=== PATIENT | female | born 1995 | race Caucasian/White ===

== ENCOUNTER 2017-07-22 16:32 | Outpatient (CLI) | payer OTHER ==
[2017-07-22 17:10] LABS: BASOPHILS # (AUTO) 0.1 10^3/uL (0.0-0.1); BASOPHILS % (AUTO) 0.7 %; EOSINOPHILS # (AUTO) 0.1 10^3/uL (0.0-0.7); EOSINOPHILS % (AUTO) 1.5 %; HGB - HEMOGLOBIN 13.2 g/dL (12.0-16.0); LYMPHOCYTES # (AUTO) 1.7 10^3/uL (1.5-3.5); MEAN CORPUSCULAR HEMOGLOBIN 29.6 pg (27.0-31.0); MEAN CORPUSCULAR HGB CONC 34.9 g/dL (32.0-36.0); MEAN PLATELET VOLUME 7.5 fL (7.9-10.8); MONOCYTES # (AUTO) 0.8 10^3/uL (0.0-1.0); MONOCYTES % (AUTO) 8.5 %; NEUTROPHILS # (AUTO) 6.9 10^3/uL (1.5-6.6); NEUTROPHILS % (AUTO) 71.3 %; RED BLOOD COUNT 4.47 10^6/uL (4.20-5.40); RED CELL DISTRIBUTION WIDTH 12.7 % (12.0-15.0); UNCORRECTED WHITE BLOOD COUNT 9.6 x10^3/uL; WHITE BLOOD COUNT 9.6 x10^3/uL (4.8-10.8)
[2017-07-22 17:31] LABS: BILIRUBIN,URINE NEGATIVE (NEGATIVE)
[2017-07-22 17:41] LABS: WBC,URINE >25 /HPF (0-5)
[2017-07-23 12:07] LABS: TEST RESULT REPORT
== END 2017-07-22 16:33 | disposition home or self-care (01) ==
LOC: LAB 16:32
PROVIDERS: ATTEND Obstetrics & Gynecology
DX: Z36.9 Encounter for antenatal screening, unspecified (principal)
CPT/HCPCS: 36415; 81001; 81599; 85025; 86762; 86803; 86850; 86900; 86901; 87340; 87389

== ENCOUNTER 2017-10-04 12:18 | Outpatient (CLI) | payer OTHER ==
--- NOTE | 2017-10-08 10:37 | Ultrasound Report ---
OB ULTRASOUND: 10/04/2017 CLINICAL INDICATION: anatomy. TECHNIQUE: Real-time scanning was performed with care support representative static images obtained. 3 LAST MENSTRUAL PERIOD 05/12/2017 Clinical Age 20 weeks 5 days US Age 21 weeks 4 days EFW Hadlock 437 grams EFW% Hadlock -- Heart Rate 143 bpm EDC 02/16/2018 US EDC 02/10/2018 BPD Hadlock 21 weeks 4 days; Mean mm 51 HC Hadlock 21 weeks 3 days; Mean mm 192 AC Hadlock 22 weeks 0 days; Mean mm 169 FL Hadlock 21 weeks 2 days; Mean mm 35 Presentation variable Placental Location anterior Cervical Length 4.2 cm Amniotic Fluid 17.66 cm; subjectively normal; MVP 4.8 cm FINDINGS There is a single viable intrauterine gestation, in variable position. heart rate is 143 BPM. The placenta is anterior, and low lying. No naveen previa is seen. Amniotic fluid volume is subjectively normal, with the deepest pocket of 4.8 cm. By size, the fetus measures 21 weeks 4 days (20 weeks 5 days by office dating). The following anatomic structures were visualized and appear normal: The intracranial contents, including the ventricles and posterior fossa; the lips and orbits; the spine; the heart, including 4 chamber view and outflow tracts, and diaphragm; the abdominal contents, including the stomach, the bilateral kidneys, and urinary bladder, as well as a normal 3 vessel cord insertion; 4 limbs. No free fluid or adnexal lesion is appreciated. IMPRESSION SINGLE VIABLE INTRAUTERINE GESTATION, WITH SIZE IN KEEPING WITH OFFICE DATING. NORMAL ANATOMIC SURVEY. ANTERIOR, LOW LYING PLACENTA. THIS SHOULD BE REEVALUATED IN THE THIRD TRIMESTER. TD: 10/04/2017 16:16 [facility]
== END 2017-10-04 12:19 | disposition home or self-care (01) ==
LOC: DI 12:18
PROVIDERS: ATTEND Obstetrics & Gynecology
DX: Z36.9 Encounter for antenatal screening, unspecified (principal); O44.42 Low lying placenta NOS or without hemorrhage, second trimester
CPT/HCPCS: 76811

== ENCOUNTER 2017-10-21 10:52 | Emergency (ER) | payer OTHER ==
--- NOTE | 2017-10-21 12:26 | ED Physician Documentation ---
PD HPI Fall - Stated complaint Stated Complaint: ANKLE PX - Chief complaint Chief Complaint: Ext Problem - History obtained from History obtained from: Patient - History of Present Illness Mechanism of injury: Tripped (with inversion of ankle. Did not fall fully down. No injury to abdomen.) Fall distance: Standing position Where injury occurred: Home Timing - onset: Yesterday Injury(ies) location: Right Lower Extremity (lateral ankle) Associated symptoms: No: LOC, AMS Worsens with: Movement, Palpation Contributing factors: No: Anticoagulated, Intoxicated Similar symptoms before: Has not had sx before Recently seen: Not recently seen Review of Systems Cardiac: denies: Chest pain / pressure, Palpitations Respiratory: denies: Dyspnea, Cough GI: denies: Abdominal Pain : denies: Discharge, Vaginal bleeding Musculoskeletal: reports: Joint pain, Joint swelling PD PAST MEDICAL HISTORY - Past Medical History Cardiovascular: None Respiratory: None Neuro: None Endocrine/Autoimmune: None 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) - Present Medications Home Medications: Ambulatory Orders Medication Instructions Recorded Confirmed No Known Home Medications [No 10/21/17 10/21/17 Known Home Medications] - Allergies Allergies/Adverse Reactions: Allergies Allergy/AdvReac Type Severity Reaction Status Date / Time Sulfa (Sulfonamide Allergy Anaphylaxis Verified 10/21/17 11:01 Antibiotics) PD ED PE NORMAL - Vitals Vital signs reviewed: Yes - General General: Alert and oriented X 3, No acute distress, Well developed/nourished - Derm Derm: Normal color, Warm and dry - Extremities Extremities: Other (right ankle with effusion, swelling and tenderness. Achilles and medial aspect not tender. ) - Neuro Neuro: Alert and oriented X 3, No motor deficit, Normal speech Results - Vitals Vitals: Oxygen O2 Source Room air - Rads (name of study) ankle Radiology: Prelim report reviewed (distal fibular fracture, minimally displaced. ) PD MEDICAL DECISION MAKING - ED course Complexity details: reviewed results, considered differential, d/w patient Departure - Departure Disposition: 01 Home, Self Care Clinical Impression: Fracture of distal fibula Qualifiers: Encounter type: initial encounter Fracture type: closed Fracture morphology: other fracture Laterality: right Qualified Code(s): S82.831A - Other fracture of upper and lower end of right fibula, initial encounter for closed fracture Condition: Stable Record reviewed to determine appropriate education?: Yes Instructions: ED Fx Ankle Lateral Malleolus Follow-Up: Ino Wallace MD [Provider Admit Priv/Credential] - Comments: Use the ankle brace with nonweightbearing and crutches for 1-2 weeks until follow-up with orthopedics. Call orthopedics today for an appointment in about 1-1 and half weeks. Tylenol or ibuprofen if needed for pains at this point in . No ibuprofen after about 30 weeks of . Elevate and ice often for swelling. Initially nonweightbearing until otherwise advised. You can touch the foot down for balance and standing is okay. Discharge Date/Time: 10/21/17 13:26
[2017-10-21 12:28] VITALS: BP 118/74
[2017-10-21] MEDS ORDERED: ACETAMINOPHEN 325 MG TABLET PO STA (13:01)
[2017-10-21] MEDS ORDERED: IBUPROFEN 600 MG TABLET PO STA (13:01)
--- NOTE | 2017-10-21 13:14 | XRAY Report ---
EXAM: RIGHT ANKLE RADIOGRAPHY EXAM DATE: 10/21/2017 12:49 PM. CLINICAL HISTORY: Trauma and swelling. COMPARISON: None. TECHNIQUE: 3 views. FINDINGS: Bones: There is an oblique fracture of the inferior fibula at the level of the syndesmosis and best s een on the lateral image. There is approximately 2 mm of displacement area did Joints: Joint space and alignment appears satisfactory. Soft Tissues: There is lateral ankle soft tissue swelling. IMPRESSION: 1. Inferior fibula fracture at syndesmosis with 2 mm of displacement. No significant widening of ankl e mortise [facility] Referring Provider Line: [phone] SITE ID: [id number]
== END 2017-10-21 13:26 | disposition home or self-care (01) ==
LOC: ED 10:52
DX: O26.892 Other specified pregnancy related conditions, second trimester (principal); S82.831A Other fracture of upper and lower end of right fibula, initial encounter for closed fracture; W18.40XA Slipping, tripping and stumbling without falling, unspecified, initial encounter; Y92.009 Unspecified place in unspecified non-institutional (private) residence as the place of occurrence of the external cause; X50.9XXA Other and unspecified overexertion or strenuous movements or postures, initial encounter; Z3A.22 22 weeks gestation of pregnancy
CPT/HCPCS: 73610; 99283; A9270

== ENCOUNTER 2017-11-09 10:22 | Emergency (ER) | payer OTHER ==
--- NOTE | 2017-11-09 12:07 | ED Physician Documentation ---
PD HPI LOWER EXT INJURY - Stated complaint Stated Complaint: R ANKLE PX - Chief complaint Chief Complaint: Ext Problem - History obtained from History obtained from: Patient - History of Present Illness PD HPI LOW EXT INJURY LOCATION: Other (She is 26 weeks , she broke her ankle falling down the stairs 3 weeks ago. She had an inferior syndesmotic fracture with some widening of the right ankle. She was treated conservatively and allowed to weight-bear after a week. She notes that when her foot is dependent she has a lot of blueness and proponents of this and swelling and pain of the foot. 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 HEENT: Dental implants Psych: None Musculoskeletal: None Derm: None Other Past Medical History: - Past Surgical History Past Surgical History: No - Present Medications Home Medications: Ambulatory Orders Medication Instructions Recorded Confirmed Knee Scooter 1 unit TD ONCE #1 11/09/17 Pnv95/Ferrous Fumarate/FA 1 tab PO DAILY 11/09/17 11/09/17 [ Formula Tablet] - Allergies Allergies/Adverse Reactions: Allergies Allergy/AdvReac Type Severity Reaction Status Date / Time Sulfa (Sulfonamide Allergy Anaphylaxis Verified 10/21/17 11:01 Antibiotics) - Social History Does the pt smoke?: No Smoking Status: Never smoker Does the pt drink ETOH?: No Does the pt have substance abuse?: No - Immunizations Immunizations are current?: Yes - POLST Patient has POLST: No PD ED PE NORMAL - Vitals Vital signs reviewed: Yes - General General: Alert and oriented X 3, No acute distress - Extremities Extremities: Other (She is tender at both malleoli of the right ankle and there is some mild calf swelling inferiorly. The foot is swollen and purple but with good pulses and cap refill.) - Neuro Neuro: Alert and oriented X 3, Normal speech - Psych Psych: Normal mood, Normal affect Results - Vitals Vitals: Vital Signs - 24 hr 11/09/17 10:42 Temperature 36.8 C Heart Rate 101 H Respiratory 14 Rate Blood Pressure 131/69 H O2 Saturation 97 Oxygen O2 Source Room air - Rads (name of study) RLE DVT scan Radiology: EMP read contemporaneously (No DVT) R ankle XR Radiology: EMP read contemporaneously (Slightly worse appearance of Ortiz B supination external rotation type fracture of the right ankle.) Procedures - Splint (location) RLE splint Splint applied by: Tech Type of splint: Fiberglass, Short leg, Posterior Other: Patient tolerated well, No complications, Neurovascular intact PD MEDICAL DECISION MAKING - ED course ED course: 22-year-old woman with lateral malleolar fracture with some syndesmotic concern whose been weightbearing and now has quite swollen ankle. She is so this raises the risk of DVT and an ultrasound was done and negative. Repeat x- rays were done with potentially I think a slight worsening of the fracture. She was fully immobilized in plaster and advised to be nonweightbearing until she sees her orthopedist again. Departure - Departure Disposition: Home, Self Care Clinical Impression: Fracture of distal fibula Qualifiers: Encounter type: initial encounter Fracture type: closed Fracture morphology: unspecified fracture morphology Laterality: right Qualified Code(s): S82.831A - Other fracture of upper and lower end of right fibula, initial encounter for closed fracture Pain of lower extremity Qualifiers: Laterality: right Qualified Code(s): M79.604 - Pain in right leg Clinical Impression: (Ruled Out): Deep vein thrombosis Condition: Good Record reviewed to determine appropriate education?: Yes Instructions: ED Cast Care Fiberglass Follow-Up: [facility] [Provider Group] - Within 1 week Prescriptions: Knee Scooter 1 unit TD ONCE #1 Comments: Recheck with the orthopedist within the week, call Saturday for an appointment. 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
--- NOTE | 2017-11-09 12:39 | XRAY Report ---
EXAM: RIGHT ANKLE RADIOGRAPHY EXAM DATE: 11/09/2017 12:27 PM. CLINICAL HISTORY: F/u ankle frx. Ankle pain. COMPARISON: None. TECHNIQUE: 3 views. FINDINGS: Bones: There is a minimally displaced acute oblique fracture of the lateral malleolus at the level of the syndesmosis, most likely supination-external rotation type injury. Joints: Unremarkable. Soft Tissues: There is mild soft tissue swelling about the ankle. IMPRESSION: 1. Acute lateral malleolar fracture. [facility] Referring Provider Line: [phone] SITE ID: [id number]
--- NOTE | 2017-11-09 12:39 | XRAY Preliminary Report ---
Exam: XR ANKLE 3 VIEW RT IMPRESSION: 1. Acute lateral malleolar fracture. [facility] SITE ID: [id number]
--- NOTE | 2017-11-09 14:40 | Ultrasound Preliminary Report ---
Exam: US DUPLEX EXT VEINS RIGHT IMPRESSION: No evidence for deep venous thrombosis. [facility] SITE ID: [id number]
--- NOTE | 2017-11-09 14:40 | Ultrasound Report ---
EXAM: RIGHT LOWER EXTREMITY VENOUS ULTRASOUND EXAM DATE: 11/09/2017 01:08 PM. CLINICAL HISTORY: Leg swelling. COMPARISON: None. TECHNIQUE: Real-time sonographic vascular imaging was performed by the associate marketing manager through the lower extremity utilizing both color-flow and Doppler spectral analysis. Multiple employee representative static karen ges were saved for review. FINDINGS: Common Femoral Vein (CFV): Normal. CFV-GSV Junction: Normal. Profunda Femoral Vein (PFV): Normal. Femoral Vein (FV) Prox: Normal. Femoral Vein (FV) Mid: Normal. Femoral Vein (FV) Dist: Normal. Popliteal Vein: Normal. Posterior Tibial Veins: Normal. Peroneal Veins: Normal. Contralateral Side CFV: Normal. Other: None. IMPRESSION: No evidence for deep venous thrombosis. [facility] Referring Provider Line: [phone] SITE ID: [id number]
[2017-11-09 14:45] VITALS: BP 125/76
== END 2017-11-09 14:53 | disposition home or self-care (01) ==
LOC: ED 10:22
DX: S82.61XA Displaced fracture of lateral malleolus of right fibula, initial encounter for closed fracture (principal); W10.9XXA Fall (on) (from) unspecified stairs and steps, initial encounter; M79.604 Pain in right leg
CPT/HCPCS: 29515; 99283

== ENCOUNTER 2017-11-10 14:13 | Emergency (ER) | payer OTHER ==
[2017-11-10 14:33] VITALS: BP 142/71
--- NOTE | 2017-11-10 14:58 | ED Physician Documentation ---
History of Present Illness - Stated complaint Stated Complaint: CAST CHECK - Chief complaint Chief Complaint: General - History obtained from History obtained from: Patient - History of Present Illness Timing: Today - Additonal information Additional information: 22-year-old female who has fallen and broken her right ankle was into the emergency department yesterday with worsening of her fracture that occurred approximately 3 weeks ago. She has some swelling of her foot and a ultrasound was obtained to rule out DVT. The patient was then placed into a posterior splint. She had been treated conservatively and was weightbearing and developing worse symptoms. She has now been placed into a posterior splint and she comes in today with a complaint that there is pain at the heal associated with the splint. Review of Systems Constitutional: denies: Fever Eyes: denies: Photophobia Ears: denies: Ear pain Nose: denies: Congestion Throat: denies: Sore throat Respiratory: denies: Cough GI: denies: Vomiting Skin: denies: Rash Musculoskeletal: reports: Extremity pain, Extremity swelling, Joint swelling. 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 HEENT: Dental implants Psych: None Musculoskeletal: None Derm: None - Past Surgical History Past Surgical History: No - Present Medications Home Medications: Ambulatory Orders Medication Instructions Recorded Confirmed Knee Scooter 1 unit TD ONCE #1 11/09/17 Pnv95/Ferrous Fumarate/FA 1 tab PO DAILY 11/09/17 11/09/17 [ Formula Tablet] - Allergies Allergies/Adverse Reactions: Allergies Allergy/AdvReac Type Severity Reaction Status Date / Time Sulfa (Sulfonamide Allergy Anaphylaxis Verified 10/21/17 11:01 Antibiotics) - Social History Does the pt smoke?: No Smoking Status: Never smoker Does the pt drink ETOH?: No Does the pt have substance abuse?: No - Immunizations Immunizations are current?: Yes - POLST Patient has POLST: No PD ED PE NORMAL - Vitals Vital signs reviewed: Yes (normal ) - General General: Alert and oriented X 3, No acute distress, Well developed/nourished - HEENT HEENT: Atraumatic, PERRL - Respiratory Respiratory: No respiratory distress - Derm Derm: Normal color, Warm and dry, No rash - Extremities Extremities: Other (The right ankle is swollen with lateral tenderness and there is tenderness to the heal medially and this lines up with a fold in the fiberglass and an acute protusion from the splint. ) - Neuro Neuro: Alert and oriented X 3, No motor deficit, No sensory deficit Eye Opening: Spontaneous Motor: Obeys Commands Verbal: Oriented GCS Score: 15 - Psych Psych: Normal mood, Normal affect Results - Vitals Vitals: Vital Signs - 24 hr 11/10/17 14:31 Temperature 36.8 C Heart Rate 93 Respiratory 18 Rate Blood Pressure 142/71 H O2 Saturation 96 Oxygen O2 Source Room air Procedures - Splint (location) right ankle Splint applied by: Tech Type of splint: Fiberglass, Posterior Other: Patient tolerated well, No complications, Neurovascular intact, Good alignment PD MEDICAL DECISION MAKING - ED course Complexity details: reviewed old records, re-evaluated patient, considered differential, d/w patient ED course: 22-year-old female with a fiberglass splint that has a sharp fold and it causing some compression of the medial aspect of the heel the fiberglass splint is removed and replaced with additional padding. Patient has resolution of her symptoms. Departure - Departure Disposition: 01 Home, Self Care Clinical Impression: Cast discomfort Condition: Stable Instructions: ED Splint Care Fiberglass Follow-Up: LUCIA Cochran [Provider Group]
== END 2017-11-10 15:10 | disposition home or self-care (01) ==
LOC: ED 14:13
DX: O26.899 Other specified pregnancy related conditions, unspecified trimester (principal); S82.891D Other fracture of right lower leg, subsequent encounter for closed fracture with routine healing; W19.XXXD Unspecified fall, subsequent encounter
CPT/HCPCS: 29105; 29515; 99282

== ENCOUNTER 2017-11-14 14:29 | Outpatient (CLI) | payer OTHER ==
[2017-11-14 15:53] LABS: HGB - HEMOGLOBIN 11.6 g/dL (12.0-16.0); MEAN CORPUSCULAR HEMOGLOBIN 29.1 pg (27.0-31.0); MEAN CORPUSCULAR HGB CONC 32.8 g/dL (32.0-36.0); MEAN CORPUSCULAR VOLUME 88.7 fL (81.0-99.0); MEAN PLATELET VOLUME 7.7 fL (7.9-10.8); RED BLOOD COUNT 3.99 10^6/uL (4.20-5.40); RED CELL DISTRIBUTION WIDTH 13.3 % (12.0-15.0); WHITE BLOOD COUNT 10.3 x10^3/uL (4.8-10.8)
== END 2017-11-14 14:30 | disposition home or self-care (01) ==
LOC: LAB 14:29
PROVIDERS: ATTEND Registered Nurse
DX: Z34.82 Encounter for supervision of other normal pregnancy, second trimester (principal)
CPT/HCPCS: 36415; 82950; 86850

== ENCOUNTER 2017-11-25 07:51 | Outpatient (CLI) | payer OTHER | END 2017-11-25 07:52 | disposition home or self-care (01) | LOC: LAB 07:51 | PROVIDERS: ATTEND Registered Nurse | DX: R73.02 Impaired glucose tolerance (oral) (principal) | CPT/HCPCS: 36415; 82951 ==

== ENCOUNTER 2017-12-25 14:37 | Outpatient (CLI) | payer OTHER ==
--- NOTE | 2017-12-27 15:38 | Ultrasound Report ---
OB FOLLOWUP: 12/25/2017 CLINICAL INDICATION: Followup low lying placenta. COMPARISON: 10/04/2017 TECHNIQUE: Real-time scanning was performed with chemical sales representative static images obtained. LAST MENSTRUAL PERIOD: 05/06/2017 Clinical Age: 33 weeks 2 days US Age: 34 weeks 0 days EFW Hadlock: 2299 g EFW% Hadlock: 60% Heart Rate: 152 bpm EDC: 02/10/2018 US EDC: 02/05/2018 BPD Hadlock: 34 weeks 0 days; Mean mm 84.5 HC Hadlock: 34 weeks 1 day; Mean mm 306.5 AC Hadlock: 34 weeks 0 days; Mean mm 300.4 FL Hadlock: 33 weeks 4 days; Mean mm 65.0 Presentation: cephalic Placental Location: anterior Cervical Length: --- Amniotic Fluid: 13.1 cm FINDINGS: There is a single viable intrauterine gestation, in cephalic presentation. heart rate is 152 BPM. The placenta is anterior. Previously seen low lying placenta has resolved. Amniotic fluid volume is normal, with an TRACEY of 13.1. By size, the fetus measures 34 weeks 0 days (33 weeks 2 days by previous sonogram). Estimated weight by Hadlock method is 2299 grams. No free fluid or adnexal lesion is appreciated. IMPRESSION: SINGLE VIABLE INTRAUTERINE GESTATION, WITH EXPECTED GROWTH FROM PREVIOUS SONOGRAM. RESOLUTION OF PREVIOUSLY NOTED LOW LYING PLACENTA. [facility]
== END 2017-12-25 14:38 | disposition home or self-care (01) ==
LOC: DI 14:37
PROVIDERS: ATTEND Nurse Practitioner Obstetrics & Gynecology
DX: O44.43 Low lying placenta NOS or without hemorrhage, third trimester (principal)
CPT/HCPCS: 76816

== ENCOUNTER 2018-01-10 16:09 | Outpatient (CLI) | payer OTHER ==
[2018-01-10 16:47] LABS: BASOPHILS # (AUTO) 0.1 10^3/uL (0.0-0.1); BASOPHILS % (AUTO) 0.5 %; EOSINOPHILS # (AUTO) 0.1 10^3/uL (0.0-0.7); EOSINOPHILS % (AUTO) 0.7 %; HGB - HEMOGLOBIN 12.5 g/dL (12.0-16.0); LYMPHOCYTES # (AUTO) 1.6 10^3/uL (1.5-3.5); LYMPHOCYTES % (AUTO) 13.5 %; MEAN CORPUSCULAR HEMOGLOBIN 27.5 pg (27.0-31.0); MEAN CORPUSCULAR HGB CONC 32.3 g/dL (32.0-36.0); MEAN CORPUSCULAR VOLUME 85.3 fL (81.0-99.0); MONOCYTES # (AUTO) 1.1 10^3/uL (0.0-1.0); MONOCYTES % (AUTO) 9.9 %; NEUTROPHILS # (AUTO) 8.7 10^3/uL (1.5-6.6); NEUTROPHILS % (AUTO) 75.4 %; PLT - PLATELET COUNT 247 10^3/uL (130-450); RED BLOOD COUNT 4.54 10^6/uL (4.20-5.40); RED CELL DISTRIBUTION WIDTH 13.6 % (12.0-15.0); WHITE BLOOD COUNT 11.6 x10^3/uL (4.8-10.8)
[2018-01-10 16:55] VITALS: BP 122/72
[2018-01-10 17:00] LABS: CREATININE 0.6 mg/dL (0.4-1.0); URIC ACID 3.6 mg/dL (2.6-7.2)
[2018-01-10 17:21] LABS: CREATININE,URINE 234.4 mg/dL; PROTEIN/CREATININE RATIO,URINE 0.2 (<=0.2)
== END 2018-01-10 17:35 | disposition home or self-care (01) ==
LOC: WFO 16:09 → FBP 16:13 → WFO 17:35
PROVIDERS: ATTEND Nurse Practitioner Obstetrics & Gynecology
DX: O13.3 Gestational [pregnancy-induced] hypertension without significant proteinuria, third trimester (principal); Z3A.34 34 weeks gestation of pregnancy
CPT/HCPCS: 36415; 59025; 82565; 82570; 83615; 84156; 84450; 84550; 85025

== ENCOUNTER 2018-01-11 16:55 | Outpatient (CLI) | payer OTHER ==
[2018-01-11 18:11] LABS: TOTAL PROTEIN 24HR,URINE 342 mg/24hr (40-150); TOTAL PROTEIN,URINE TIMED 18 mg/dL; TOTAL VOLUME 24HRS,URINE 1900 mL
== END 2018-01-11 16:56 | disposition home or self-care (01) ==
LOC: LAB.R 16:55
PROVIDERS: ATTEND Registered Nurse
DX: O13.3 Gestational [pregnancy-induced] hypertension without significant proteinuria, third trimester (principal)
CPT/HCPCS: 84156

== ENCOUNTER 2018-01-14 14:49 | Outpatient (CLI) | payer OTHER ==
[2018-01-14 15:00] VITALS: BP 115/71
== END 2018-01-14 16:30 | disposition home or self-care (01) ==
LOC: WFO 14:49 → FBP 14:51 → WFO 16:30
PROVIDERS: ATTEND Registered Nurse
DX: O14.03 Mild to moderate pre-eclampsia, third trimester (principal); Z3A.35 35 weeks gestation of pregnancy
CPT/HCPCS: 59025

== ENCOUNTER 2018-01-15 17:23 | Outpatient (CLI) | payer OTHER | END 2018-01-15 23:59 | LOC: LAB.R 17:23 | PROVIDERS: ATTEND Registered Nurse | DX: Z34.83 Encounter for supervision of other normal pregnancy, third trimester (principal) | CPT/HCPCS: 87081 ==

== ENCOUNTER 2018-01-17 14:59 | Outpatient (CLI) | payer OTHER ==
[2018-01-17 15:56] VITALS: BP 120/77
== END 2018-01-17 16:06 | disposition home or self-care (01) ==
LOC: WFO 14:59 → FBP 15:01 → WFO 16:06
PROVIDERS: ATTEND Nurse Practitioner Obstetrics & Gynecology
DX: O14.93 Unspecified pre-eclampsia, third trimester (principal); Z3A.35 35 weeks gestation of pregnancy
CPT/HCPCS: 59025

== ENCOUNTER 2018-01-21 08:00 | Outpatient (CLI) | payer OTHER ==
[2018-01-21 16:40] LABS: BASOPHILS % (AUTO) 0.3 %; EOSINOPHILS # (AUTO) 0.1 10^3/uL (0.0-0.7); EOSINOPHILS % (AUTO) 0.9 %; HGB - HEMOGLOBIN 12.9 g/dL (12.0-16.0); LYMPHOCYTES # (AUTO) 1.6 10^3/uL (1.5-3.5); LYMPHOCYTES % (AUTO) 14.9 %; MEAN CORPUSCULAR HEMOGLOBIN 28.3 pg (27.0-31.0); MEAN CORPUSCULAR VOLUME 85.7 fL (81.0-99.0); MEAN PLATELET VOLUME 8.1 fL (7.9-10.8); MONOCYTES # (AUTO) 1.2 10^3/uL (0.0-1.0); MONOCYTES % (AUTO) 11.1 %; NEUTROPHILS # (AUTO) 7.8 10^3/uL (1.5-6.6); NEUTROPHILS % (AUTO) 72.8 %; PLT - PLATELET COUNT 244 10^3/uL (130-450); RED BLOOD COUNT 4.58 10^6/uL (4.20-5.40); RED CELL DISTRIBUTION WIDTH 13.9 % (12.0-15.0); WHITE BLOOD COUNT 10.7 x10^3/uL (4.8-10.8)
[2018-01-21 16:47] LABS: ALBUMIN 3.2 g/dL (3.2-5.5); ALBUMIN/GLOBULIN RATIO 0.9 (1.0-2.2); BILIRUBIN,TOTAL 0.5 mg/dL (0.2-1.0); CALCIUM 8.7 mg/dL (8.5-10.3); CREATININE 0.5 mg/dL (0.4-1.0); TOTAL PROTEIN 6.9 g/dL (6.7-8.2); URIC ACID 3.4 mg/dL (2.6-7.2)
== END 2018-01-21 08:01 ==
LOC: LAB 08:00
PROVIDERS: ATTEND Nurse Practitioner Obstetrics & Gynecology
DX: O14.93 Unspecified pre-eclampsia, third trimester (principal)
CPT/HCPCS: 36415; 80053; 84550; 85025

== ENCOUNTER 2018-01-21 15:17 | Outpatient (CLI) | payer OTHER ==
[2018-01-21 16:46] VITALS: BP 124/72
== END 2018-01-21 16:32 | disposition home or self-care (01) ==
LOC: WFO 15:17
PROVIDERS: ATTEND Nurse Practitioner Obstetrics & Gynecology
DX: O14.93 Unspecified pre-eclampsia, third trimester (principal); Z3A.00 Weeks of gestation of pregnancy not specified
CPT/HCPCS: 36415; 59025; 80053; 84550; 85025

== ENCOUNTER 2018-01-24 15:00 | Outpatient (CLI) | payer OTHER ==
[2018-01-24 15:17] VITALS: BP 117/70
== END 2018-01-24 16:45 | disposition home or self-care (01) ==
LOC: WFO 15:00 → FBP 15:02 → WFO 16:45
PROVIDERS: ATTEND Registered Nurse
DX: O14.93 Unspecified pre-eclampsia, third trimester (principal); Z3A.36 36 weeks gestation of pregnancy
CPT/HCPCS: 59025

== ENCOUNTER 2018-01-26 07:58 | Inpatient (IN) | payer OTHER ==
[2018-01-26] MEDS ORDERED: SODIUM CHLORIDE FLUSH 0.9% 10 ML SYRINGE IVP PRN (08:03)
[2018-01-26] MEDS ORDERED: ACETAMINOPHEN 325 MG TABLET PO PRN (08:03)
[2018-01-26] MEDS ORDERED: fentaNYL 100 MCG/2 ML VIAL IVP PRN (08:03)
--- NOTE | 2018-01-26 08:15 | HISTORY & PHYSICAL EXAMINATION ---
Admit History - Instructions [place]/Slash: -Left hand click circles element as positive or present. -Right hand click slashes element as negative or not present. - Visit Reason Visit Reason: Other - : 1 Parity: 0 Premature: 0 Ectopic: 0 : 0 Care: positive: [facility] Risk/History: positive: Pre-eclampsia Complications This : positive: Pre-eclampsia Smoking Status: Never smoker - Mother's Labs Mother's Blood Type: positive: A Mother's RH: positive: Positive GBS: positive: Group B Step Negative Rubella Status: positive: Non-immune Meds/Allgy - Home Medications Home Medications: Ambulatory Orders Medication Instructions Recorded Confirmed Knee Scooter 1 unit TD ONCE #1 11/09/17 Pnv95/Ferrous Fumarate/FA 1 tab PO DAILY 11/09/17 11/09/17 [ Formula Tablet] - Allergies Allergies/Adverse Reactions: Allergies Allergy/AdvReac Type Severity Reaction Status Date / Time Sulfa (Sulfonamide Allergy Anaphylaxis Verified 10/21/17 11:01 Antibiotics) Physical - Monitoring Heart Rate Baseline: 140 Strip Review: positive: Category I - Presentation Presentation: positive: Vertex - Vaginal Exam Membranes: positive: Membranes intact - Speculum Exam Speculum Exam Performed: positive: No Plan for Labor - Plan For Labor I expect patient to be DC'd or transferred within 96 hours.: No Plan for Labor: HPI: Nilda is a 22yo @ 37.0 wks gestation by LMP who presents to [facility] for cervical ripening in anticipation of IOL secondary to mild PET diagnosed at 34 weeks gestation. She reports intermittent AKHTAR, edema to LE's bilaterally, denies RUQ or epigastric pain, denies visual disturbances. She denies VB, Lof, or contractions and reports + FM. Her has been complicated by food poisoning at 19 weeks gestation and a fractured right ankle from a fall down the stairs which did not require surgery at 26 weeks gestation. At 34 weeks gestation she presented with elevated BP in the office. PIH labs revealed 24 hour urine 342 mg/L; all other lab values have remained stable. No thrombocytopenia. 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 Membranes intact Bilateral LE's 2+ pitting edema DTRs 2+, no clonus labs: A pos, antibody neg GC/CT neg RPR nonreactive Rubella non-immune Hep B non reactive Hep C non-reactive HIV non-reactive 1 hour GTT 147 3 hour GTT WNL - no gestational diabetes 24 hour urine 342mg/L Ultrasound: FAS WNL with exception of low-lying placenta, anterior placenta, no naveen previa , size c/w dating, TRACEY WNL F/u Ultrasound reveals resolution of low-lying placenta, size c/w dating Vaccinations: Influenza 06/2017 Tdap 12/10/2017 Assessment: 22yo @ 37.0wks gestation Mild PET Cervical ripening with 50mcg misoprostol BC Q4hrs in anticipation of induction of labor secondary to mild PET Consents signed Plan: Patient placed in observation status. Initiate pre-induction cervical ripening with 50mcg misoprostol BC q4hrs Anticipate IOL when cervix reaches a favorable state Continuous monitoring Serial BP monitoring with manual cuff Activity and nutrition as indicated Encouraged ambulation and frequent position changes Pt and verbalized understanding and agree to above plan. They deny further questions or concerns at this time.
[2018-01-26] MEDS ORDERED: SODIUM CHLORIDE FLUSH 0.9% 10 ML SYRINGE ONE (08:17)
[2018-01-26 08:40] LABS: BASOPHILS # (AUTO) 0.1 10^3/uL (0.0-0.1); BASOPHILS % (AUTO) 1.1 %; EOSINOPHILS # (AUTO) 0.1 10^3/uL (0.0-0.7); EOSINOPHILS % (AUTO) 0.8 %; HGB - HEMOGLOBIN 12.7 g/dL (12.0-16.0); LYMPHOCYTES # (AUTO) 1.4 10^3/uL (1.5-3.5); LYMPHOCYTES % (AUTO) 11.9 %; MEAN CORPUSCULAR HEMOGLOBIN 28.5 pg (27.0-31.0); MEAN CORPUSCULAR HGB CONC 33.7 g/dL (32.0-36.0); MEAN CORPUSCULAR VOLUME 84.6 fL (81.0-99.0); MEAN PLATELET VOLUME 7.8 fL (7.9-10.8); MONOCYTES # (AUTO) 1.1 10^3/uL (0.0-1.0); MONOCYTES % (AUTO) 9.9 %; NEUTROPHILS # (AUTO) 8.8 10^3/uL (1.5-6.6); NEUTROPHILS % (AUTO) 76.3 %; PLT - PLATELET COUNT 240 10^3/uL (130-450); RED BLOOD COUNT 4.46 10^6/uL (4.20-5.40); RED CELL DISTRIBUTION WIDTH 14.2 % (12.0-15.0); WHITE BLOOD COUNT 11.5 x10^3/uL (4.8-10.8)
[2018-01-26] MEDS ORDERED: LACTATED RINGERS 1,000 ML IV SCH (09:00)
[2018-01-26] MEDS: miSOPROStol 100 MCG TABLET BC SCH ×2 (09:03→23:57)
[2018-01-26] MEDS: SODIUM CHLORIDE FLUSH 0.9% 10 ML SYRINGE IVP SCH (09:04)
[2018-01-26 09:29] LABS: CREATININE,URINE 115.5 mg/dL; PROTEIN/CREATININE RATIO,URINE 0.2 (<=0.2)
[2018-01-26 09:43] LABS: URIC ACID 3.4 mg/dL (2.6-7.2)
--- NOTE | 2018-01-26 16:14 | PROVIDER PROGRESS NOTE ---
Labor Progress Note - Uterine Monitoring Uterine Monitoring Mode: positive: External toco Contraction Frequency (min/apart): 2-4 min Contraction Intensity: positive: Moderate Uterine Resting Tone: positive: Soft - Monitoring Monitor Mode: positive: External ultrasound Heart Rate Baseline: 130 Heart Rate Variability: positive: Moderate (6-25 bmp) Accelerations: positive: Present, 15x15 Decelerations: positive: None Strip Review: positive: Category I - Vaginal Exam Dilation (in cm): 2 Effacement (%): 50 Station: -1 Cervical Position: Midposition - Labor Progress Note Labor Progress Note/Additional Text: S: Pt sitting in bed with supportive at the bedside. She denies AKHTAR, visual disturbances, RUQ or epigastric pain. She reports +FM. She is feeling menstrual-like cramping consistently and occasionally has to breathe through contractions. Rating discomfort 4/10. O: 128/84, P 102, T 37.2, RR 18; SVE 2/50/-1, vertex, medium consistency, midposition FHR baseline 130s, moderate variability, + accels, no decels. Contractions palpate moderate every 2-4 minutes. Multani bulb cervical ripening balloon placed without difficulty with 60cc in the internal balloon and 30cc in the external balloon. A: 22yo @ 37.0wks gestation Mild PET - stable S/p multani bulb placement and misoprostol 50mcg BC x 1 FHT category I P: Continue misoprostol 50mcg q4hrs BC Continue active management. Encouraged ambulation and positions changes. Anticipate AROM and initiation of pitocin per protocol when multani bulb cervical ripening balloon is expelled.
[2018-01-26] MEDS ORDERED: ZOLPIDEM 5 MG TABLET PO PRN (23:02)
--- NOTE | 2018-01-26 23:02 | PROVIDER PROGRESS NOTE ---
Labor Progress Note - Uterine Monitoring Uterine Monitoring Mode: positive: External toco Contraction Frequency (min/apart): 2-4 Contraction Intensity: positive: Mild Uterine Resting Tone: positive: Soft - Monitoring Monitor Mode: positive: External ultrasound Heart Rate Baseline: 130 Heart Rate Variability: positive: Moderate (6-25 bmp) Accelerations: positive: Present, 15x15 Decelerations: positive: None Strip Review: positive: Category I - Vaginal Exam Dilation (in cm): 2-3 Effacement (%): 75 Station: -2 Cervical Position: Midposition - Labor Progress Note Labor Progress Note/Additional Text: S: Pt starting to feel that contractions are decreasing in intensity and starting to space out. She reports a scant amount of blood on the pad when she was up to the bathroom. Denies Lof. Denies AKHTAR, visual disturbances, RUQ pain or epigastric pain. Pt states she feels that she may be able to sleep through contractions at this time but with a second dose of misoprostol she may feel too uncomfortable to sleep. She desires to take a PO Ambien to sleep. [place] sleeping at the bedside. O: FHR baseline 130s, moderate variability, + accels, no decels. Contractions palpate mild every 2-4 minutes with soft resting tone. Morin bulb expelled through cervix and SVE 2-3/75/-2, medium consistency, midposition A: 22yo @ 37.0wks gestation Mild PET - normotensive PET labs stable Morin bulb expelled into vagina with SVE Category I tracing P: Resume misoprostol 50mcg BC q 4 hours Continuos monitoring Ambien PO for sleep tonight Anticipate admission with active labor in <48 hours.
[2018-01-27] MEDS ORDERED: AMPICILLIN/SULBACTAM 3 GM in SODIUM CHLORIDE 0.9% MINIBAG 100 ML IV SCH (01:00)
[2018-01-27] MEDS: miSOPROStol 100 MCG TABLET BC SCH ×2 (04:38→08:56)
[2018-01-27] MEDS: SODIUM CHLORIDE FLUSH 0.9% 10 ML SYRINGE IVP SCH (04:43)
[2018-01-27] MEDS ORDERED: OXYTOCIN/SODIUM CHLORIDE 250 ML IV ONE ×2 (16:59→23:52)
[2018-01-27] MEDS ORDERED: ONDANSETRON 4 MG/2 ML VIAL IVP PRN (16:59)
--- NOTE | 2018-01-27 17:05 | PROVIDER PROGRESS NOTE ---
Labor Progress Note - Uterine Monitoring Uterine Monitoring Mode: positive: External toco Contraction Frequency (min/apart): 2-3 x60 seconds Contraction Intensity: positive: Moderate to strong Uterine Resting Tone: positive: Soft - Monitoring Monitor Mode: positive: External ultrasound Heart Rate Baseline: 150 Heart Rate Variability: positive: Moderate (6-25 bmp) Accelerations: positive: Present, 15x15 Decelerations: positive: None Strip Review: positive: Category I - Vaginal Exam Dilation (in cm): 6 Effacement (%): 80 Station: 0 Cervical Position: Midposition - Labor Progress Note Labor Progress Note/Additional Text: S: Nilda is doing well. She rates her contraction discomfort as 4/10 & enjoyed relief w/ hydrotherapy. She would like to ambulate & utilize the ball. She is well-supported by her , who is involved & helpful @ the bedside. She reports some bloody show. She denies AKHTAR/visual disturbance or pain other than w/ uterine contractions. Her intent is to avoid analgesia/ anesthesia. O: AAOx3, NAD WA female VS: BP 138/71 DTRs +2, no clonus, +1 pitting b/l LE edema, neg Jeovany's EFM: BL 150bpm, + accels, no decels, mod yina TOCO: UCs q2-3 min x80 seconds, palp mod to strong SVE: 6/80/0 BBOW A: 22 y/o @ 37w1d, IOL for mild pre-eclampsia, normotensive @ present w/o features of severe PET s/p effective medical & mechanical cervical ripening over a period of 32 hours Actively laboring w/o additional augmentation Adequate pain control w/o desire for analgesia/anesthesia GBS negative w/ IBOW FHTs cat I P: 1. Reviewed options for pain management at length 2. Reviewed anticipatory guidance for progression of labor, transition phase, second stage 3. Reassess cervical status w/ maternal urge to push or x4 hours 4. Reviewed plan of care w/ pt, partner, & RN @ bedside; all in agreement, without concerns.
[2018-01-27] MEDS ORDERED: miSOPROStol 200 MCG TABLET ONE (17:12)
[2018-01-27] MEDS ORDERED: MINERAL OIL LIGHT 10 ML MC ONE (17:13)
[2018-01-27] MEDS ORDERED: LIDOCAINE 1% 50 ML MDV ONE (17:13)
[2018-01-27] MEDS ORDERED: SODIUM CHLORIDE FLUSH 0.9% 10 ML SYRINGE ONE (17:14)
[2018-01-27] MEDS ORDERED: CARBOPROST TROMETHAMINE 250 MCG/ML AMP IM ONE ×2 (22:42→23:52)
[2018-01-27 22:49] LABS: HGB - HEMOGLOBIN 12.5 g/dL (12.0-16.0); MEAN CORPUSCULAR HEMOGLOBIN 27.5 pg (27.0-31.0); MEAN CORPUSCULAR HGB CONC 32.3 g/dL (32.0-36.0); MEAN CORPUSCULAR VOLUME 85.3 fL (81.0-99.0); MEAN PLATELET VOLUME 7.8 fL (7.9-10.8); RED BLOOD COUNT 4.53 10^6/uL (4.20-5.40); RED CELL DISTRIBUTION WIDTH 13.9 % (12.0-15.0); WHITE BLOOD COUNT 18.6 x10^3/uL (4.8-10.8)
[2018-01-27] MEDS ORDERED: OXYTOCIN 10 UNIT/ML VIAL ONE (22:58)
[2018-01-27] MEDS ORDERED: OXYTOCIN/SODIUM CHLORIDE 500 ML IV ONE (23:00)
[2018-01-27] MEDS ORDERED: ceFAZolin 2 GM/50 ML 2 GM/50 ML BAG IV SCH (23:00)
[2018-01-27] MEDS ORDERED: DIPHENOX/ATROPINE 2.5/0.025 MG TABLET PO PRN (23:32)
--- NOTE | 2018-01-27 23:35 | DELIVERY NOTE ---
Delivery Note - Labor Labor: positive: Other (cervical ripening w/ misoprostol 50mcg x4 doses & cervical ripening balloon to effect 4cm dilation w/ ongoing contraction activity & active labor) - Infant Delivery Method Infant Delivery Method: positive: Spontaneous vaginal delivery - Presentation Presentation: positive: Vertex, LILIAN - right occiput anterior - Nuchal Cord Nuchal Cord: positive: Present (x1, tight, tight body cord, tight L leg cord) - Anesthetic Anesthetic Type: Anesthetic: positive: Lidocaine - 1% plain Volume: positive: Other (20mL) - Amniotic Fluid Description Amniotic Fluid Description: positive: Clear - Episiotomy Type Episiotomy Type: positive: None - Laceration Laceration: positive: Sulcus, Vaginal (repaired under anesthesia in operating room by Dr. Woodard secondary to intolerance of attempted repair in room w/ local anesthesia) - Delivery Outcome Delivery Outcome: positive: Livebirth - Henderson Henderson: positive: Placed in direct skin contact with mother, Stimulated, [place] used sex: positive: Male - Cord Cord: positive: 3 vessels - Placenta Placenta: positive: Intact, Spontaneous - Estimated Blood Loss Estimated Blood Loss (in cc): 2,100 - Post Delivery Events Post Delivery Events: positive: Hemorrhage, Unplanned procedure (vaginal/sulcus laceration repair in operating room under general anesthesia) - Delivery Comments (Free Text/Narrative) Delivery Comments (Free Text/Narrative): Nilda James is a 22 y/o who was admitted at 37 weeks' gestation for cervical ripening for pre-eclampsia w/o severe features. Her was complicated by pre-eclampsia, which was identified @ 34 weeks' gestation, but which did not require antihypertensive therapy to manage, and by R fibula fracture w/o surgical intervention to manage. She underwent mechanical & medical cervical ripening w/ transcervical balloon placement followed by 4 doses 50mcg buccal misoprostol to effect cervical change to 4cm dilatation. Thereafter, she was spontaneously tristan & was found to be 6cm @ 1630. She progressed w/o further intervention or anesthesia/analgesia per her wishes with excellent support from her , Rhonda, to complete dilatation @ 2140, at which point she experienced SROM for CAF; total first stage duration was 5 hours, 10 minutes. FHTs were monitored electronically t/o & were consistently cat I. She pushed w/ spontaneous urge to viable male in LILIAN position over an intact perineum @ 2207, for a total second stage duration of 27 minutes. Infant vigorous w/ spontaneous, lusty cry. Placed to maternal abdomen for drying/stim. Delayed cord clamping until cessation of pulsation, then cord clamped x2 by CNM, cut by patient. 3VC noted, cord blood obtained. Active management delayed secondary to ineffective IV access. Placenta delivered spontaneously & intact, Menendez, @ 2212, for a total 3rd stage duration of 5 minutes. Vagina & perineum inspected & deep L sulcus laceration extending into vaginal canal to perineum noted, infiltrated 20mL 1% lidocaine & repair begun w / 2-0 vicryl but disrupted for excessive bleeding. Intermittent brisk vaginal bleeding in spite of FF U-1, NICHOLAS evacuated for large amount of clot x3 & bimanual compression performed, buccal misoprostol 800mcg & carbaprost 250mcg IM in addition to additional 10U IM Pitocin administered w/ minimal effect on NICHOLAS atony. Bakri balloon placed w/ ease & inflated w/o resistance w/ 300mL sterile water to effect hemostasis. Stat CBC obtained & attempt to secure 2nd IV access site made; Dr. Vance DO, called to room for evaluation. 100mcg IV fentanyl administered for analgesia during bimanual compression & Bakri placement; pt unable to tolerate further attempts to assess & repair laceration in room. Anesthesia notified & requested Dr. Vance DO, perform repair in operating room for optimal visualization & anesthesia. FF w/ bakri balloon in place. Vaginal packing placed sterilely in anticipation of transportation to OR. Immediate CBC stable. Unasyn 3g IVPB q 6hrs x24 hours per discussion w/ Dr. Woodard, secondary to uterine exploration/evacuation/manipulation. Total EBL by weight 2200mL. Infant stable w/ Apgars 8/9, weight pending.
--- NOTE | 2018-01-27 23:42 | PROVIDER PROGRESS NOTE ---
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 Uterine balloon placed by CNM and already in place when I arrive in room at approx. 2315 and again when I checked in on patient several minutes later. At second visit to room, CNM requested my assistance with doing repair that was proving difficult due to no epidural and difficulty with exposure. I placed gloves and performed vaginal exam and was able to appreciate apex of tear far in vaginal canal using right angle retractor and CNM assist. Case deemed too difficult and risky to attempt to do in FBP given above limitatations and EBL 1,200 mL. I had ANS and OR crew called in for repair in OR. Nursing instructed to start second IV, continue IV pitocin at 125 mL/Hr and place multani, Type and Cross for 4 units and get 2 units of FFP thawed. Told by blood bank that it would take 45 min. to get cross-matched blood, so getting 2 units O Neg blood for patient. Pre -delivery HCT 37%. Patient counseled and consented for EUA in OR and repair of vaginal/cervical laceractions. Patient still having light bleeding from laceraction, curlex gauze placed in vagina for packing by CNM. Spouse also present during counseling/consenting and all questions answered. Objective - Lab Results Fish Bones: 01/27/18 22:40 Other Labs: Lab Results x24hrs 01/27/18 Range/Units 22:40 WBC 18.6 H (4.8-10.8) x10^3/uL RBC 4.53 (4.20-5.40) 10^6/uL Hgb 12.5 (12.0-16.0) g/dL Hct 38.7 (37.0-47.0) % MCV 85.3 (81.0-99.0) fL MCH 27.5 (27.0-31.0) pg MCHC 32.3 (32.0-36.0) g/dL RDW 13.9 (12.0-15.0) % Plt Count 210 (130-450) 10^3/uL MPV 7.8 L (7.9-10.8) fL
[2018-01-27] MEDS ORDERED: LACTATED RINGERS 1,000 ML IV SCH (23:45)
[2018-01-27] MEDS ORDERED: HYDROCORTISONE/PRAMOXINE 10 GM PR PRN (23:52)
[2018-01-27] MEDS ORDERED: WITCH HAZEL/GLYCERIN 1 EACH MED..PAD TOP PRN (23:52)
[2018-01-27] MEDS ORDERED: oxyCODONE 5 MG TABLET PO PRN (23:52)
[2018-01-27] MEDS ORDERED: OXYTOCIN 10 UNIT/ML VIAL IM ONE (23:52)
[2018-01-27] MEDS ORDERED: HYDROCORTISONE 1% CREAM 28 GM TUBE PR PRN (23:52)
[2018-01-27] MEDS ORDERED: MAGNESIUM HYDROXIDE 2,400 MG/30 ML UDC PO PRN (23:52)
[2018-01-28] MEDS ORDERED: LACTATED RINGERS 1,000 ML IV ONE ×4 (01:28→12:36)
[2018-01-28] MEDS ORDERED: fentaNYL 100 MCG/2 ML VIAL IVP SCH (03:00)
[2018-01-28] MEDS ORDERED: HYDROCORTISONE/PRAMOXINE 10 GM PR PRN (03:25)
[2018-01-28] MEDS ORDERED: OXYTOCIN/SODIUM CHLORIDE 250 ML IV ONE ×2 (03:25→03:36)
[2018-01-28] MEDS ORDERED: WITCH HAZEL/GLYCERIN 1 EACH MED..PAD TOP PRN (03:25)
[2018-01-28] MEDS ORDERED: LIDOCAINE-PF 4% 5 ML AMP SUBQ ONE (03:30)
[2018-01-28 03:58] LABS: BASOPHILS % (AUTO) 0.1 %; EOSINOPHILS % (AUTO) 0.1 %; HGB - HEMOGLOBIN 10.7 g/dL (12.0-16.0); LYMPHOCYTES # (AUTO) 1.3 10^3/uL (1.5-3.5); LYMPHOCYTES % (AUTO) 6.4 %; MEAN CORPUSCULAR HEMOGLOBIN 28.1 pg (27.0-31.0); MEAN CORPUSCULAR HGB CONC 32.5 g/dL (32.0-36.0); MEAN CORPUSCULAR VOLUME 86.6 fL (81.0-99.0); MEAN PLATELET VOLUME 8.1 fL (7.9-10.8); MONOCYTES # (AUTO) 1.7 10^3/uL (0.0-1.0); MONOCYTES % (AUTO) 8.1 %; NEUTROPHILS % (AUTO) 85.3 %; PLT - PLATELET COUNT 210 10^3/uL (130-450); RED BLOOD COUNT 3.82 10^6/uL (4.20-5.40); RED CELL DISTRIBUTION WIDTH 13.9 % (12.0-15.0)
[2018-01-28] MEDS ORDERED: LACTATED RINGERS 1,000 ML IV SCH (04:00)
[2018-01-28 04:10] LABS: PT - PROTHROMBIN TIME 11.8 secs (9.9-12.6)
[2018-01-28] MEDS: ACETAMINOPHEN 325 MG TABLET PO PRN ×2 (04:17→10:28)
[2018-01-28] MEDS: oxyCODONE 5 MG TABLET PO PRN ×2 (04:17→10:28)
--- NOTE | 2018-01-28 04:18 | PROCEDURE REPORT ---
Hospitalist Procedure Note - Procedure Note Procedure Note: PROCEDURE NOTE: DATE OF PROCEDURE: 01/28/18 PRE-OP DIAGNOSIS: HEMORRHAGE, BILATERAL VAGINAL SIDEWALL LACERATIONS POST-OP DIAGNOSIS: HEMORRHAGE, BILATERAL VAGINAL SIDEWALL LACERATIONS , 3RD DEGREE PERINEAL LACERATION PROCEDURE: EXAM UNDER ANS, REPAIR OF BL VAGINAL SIDEWALL LACERATIONS AND 3RD DEGREE PERINEAL LACERATION ANS: SPINAL COOLING TOWER TECHNICIAN: AL SURGEON: MONY DRAINS: MAGDALENO, BAKRI BALLOON (BALLOON ALREADY IN PATIENT AT START OF CASE) FINDINGS: BL 4 INCH VAGINAL SULCUS/SIDEWALL LACERATIONS EXTENDING TO EXTERNAL LABIA MAJORA, 3RD DEGREE PERINEAL LAC. THROUGH ENTIRE SPHINCTER, RECTAL MUCOSA INTACT ON RECTO-VAGINAL EXAM. FLUIDS (ML) LR 1,000 UO 150 EBL 250 TRANSFUSION: 1 UNIT PRBC INTRA-OP ABX: UNASYN 3 GM AT 0130 HOURS SPECIMENS: NONE COMPLICATIONS: NONE CONDITION: STABLE
[2018-01-28] MEDS ORDERED: LIDOCAINE 1% 50 ML MDV ONE (07:55)
[2018-01-28] MEDS ORDERED: OXYTOCIN 10 UNIT/ML VIAL ONE (07:55)
[2018-01-28] MEDS: DOCUSATE SODIUM 100 MG CAPSULE PO SCH ×2 (08:22→20:31)
[2018-01-28] MEDS: AMPICILLIN/SULBACTAM 3 GM in SODIUM CHLORIDE 0.9% MINIBAG 100 ML IV SCH ×3 (08:22→20:30)
[2018-01-28] MEDS ORDERED: DOCUSATE SODIUM 100 MG CAPSULE PO SCH (09:00)
--- NOTE | 2018-01-28 09:07 | PROVIDER PROGRESS NOTE ---
Subjective - Prog Note Date Prog Note Date: 01/28/18 Prog Note Time: 09:00 - Subjective Pt reports feeling: Improved Subjective: Nilda reports feeling weak & exhausted. She denies AKHTAR or dizziness. She has not been up & out of bed since her laceration repair. She has SCDs in place & multani catheter as well as Bakri balloon intact & draining. She is Pepe w/o discomfort. Rhonda is at the bedside & is involved & supportive. They are tearful regarding the chaos & trauma of their immediate pp experience, as it was not what they had anticipated. Objective - Vital Signs/Intake & Output Reviewed Vital Signs: Yes Vital Signs: Vital Signs x48h Temp Pulse Resp BP Pulse Ox 01/28/18 08:08 37.1 C 88 18 107/63 97 01/28/18 06:39 37.4 C 92 16 113/52 L 97 01/28/18 05:30 95 111/62 01/28/18 05:00 87 114/59 L 01/28/18 04:45 85 119/67 01/28/18 04:28 100 121/72 01/28/18 04:15 87 127/77 01/28/18 03:58 99 117/67 98 01/28/18 03:44 85 125/72 100 01/28/18 03:37 94 16 121/70 97 01/28/18 03:30 87 126/71 98 01/28/18 03:28 95 124/69 96 01/28/18 03:20 37.4 C 96 126/67 97 Intake & Output: Intake & Output 01/25/18 01/26/18 01/27/18 01/28/18 23:59 23:59 23:59 23:59 Intake Total 850 1500 Output Total 326 Balance 850 1174 - Objective General Appearance: positive: No acute distress, Alert Eyes Bilateral: positive: Normal inspection Respiratory: positive: Chest non-tender, No respiratory distress, Breath sounds nml Cardiovascular: positive: Regular rate & rhythm, No murmur, No gallop Abdomen: positive: Tenderness, Other (FF @ U+1, bakri balloon in place) Skin: positive: No rash, Warm, Dry, Pallor Extremities: positive: Non-tender, Full ROM, Pedal edema. negative: Calf tenderness, Jeovany's sign/cords Neurologic/Psychiatric: positive: Oriented x3, CN's nml (2-12), Motor nml, Sensation nml, Depressed mood/affect Comments/Other: Breasts b/l s, nt; nipples b/l intact & everted, colostrum readily expressible. - Lab Results Fish Bones: 01/28/18 03:37 Other Labs: Lab Results x24hrs 01/28/18 01/28/18 01/28/18 Range/Units 08:00 04:00 03:37 WBC 21.0 H (4.8-10.8) x10^3/uL RBC 3.82 L (4.20-5.40) 10^6/uL Hgb 10.7 L (12.0-16.0) g/dL Hct 33.1 L (37.0-47.0) % MCV 86.6 (81.0-99.0) fL MCH 28.1 (27.0-31.0) pg MCHC 32.5 (32.0-36.0) g/dL RDW 13.9 (12.0-15.0) % Plt Count 210 (130-450) 10^3/uL MPV 8.1 (7.9-10.8) fL Neut # (Auto) 18.0 H (1.5-6.6) 10^3/uL Lymph # (Auto) 1.3 L (1.5-3.5) 10^3/uL Ramsey # (Auto) 1.7 H (0.0-1.0) 10^3/uL Eos # (Auto) 0.0 (0.0-0.7) 10^3/uL Baso # (Auto) 0.0 (0.0-0.1) 10^3/uL Absolute Nucleated RBC 0.00 x10^3/uL Nucleated RBC % 0.0 /100WBC PT 11.8 (9.9-12.6) secs INR 1.0 (0.8-1.2) APTT 26.2 25.1 (24.9-33.3) secs Fibrinogen 416 446 (220-496) mg/dL Blood Type Antibody Screen Crossmatch IS Only 01/27/18 01/27/18 01/26/18 Range/Units 22:40 08:30 08:30 WBC 18.6 H (4.8-10.8) x10^3/uL RBC 4.53 (4.20-5.40) 10^6/uL Hgb 12.5 (12.0-16.0) g/dL Hct 38.7 (37.0-47.0) % MCV 85.3 (81.0-99.0) fL MCH 27.5 (27.0-31.0) pg MCHC 32.3 (32.0-36.0) g/dL RDW 13.9 (12.0-15.0) % Plt Count 210 (130-450) 10^3/uL MPV 7.8 L (7.9-10.8) fL Neut # (Auto) (1.5-6.6) 10^3/uL Lymph # (Auto) (1.5-3.5) 10^3/uL Ramsey # (Auto) (0.0-1.0) 10^3/uL Eos # (Auto) (0.0-0.7) 10^3/uL Baso # (Auto) (0.0-0.1) 10^3/uL Absolute Nucleated RBC x10^3/uL Nucleated RBC % /100WBC PT (9.9-12.6) secs INR (0.8-1.2) APTT (24.9-33.3) secs Fibrinogen (220-496) mg/dL Blood Type A POSITIVE Antibody Screen NEGATIVE Crossmatch IS Only See Detail See Detail Assessment/Plan - Problem List (1) (normal spontaneous vaginal delivery) Impression: 22 y/o s/p 01/27/18 w/ immediate pp hemorrhage & repair of 3rd degree laceration w/ b/l vaginal sidewall lacerations under anesthesia in OR 01/[address] & bleeding presently well-controlled Pallor, but VSS, no s/sx hypovolemia, h/h presently stable, crystalloid infusing Adequate pain control w/o analgesia @ this time well P: 1. Continue routine pp care 2. Bakri balloon to remain in place x24 hours, then begin slowly deflating 3. h/h again this am to ensure hemodynamic stability 4. support provided & to continue in ongoing fashion 5. reviewed bowel hygiene/regimen 6. extensive review of delivery experience, PPH, laceration repair, emotional support provided & to continue in ongoing fashion 7. Anticipate 48-hour minimum stay
--- NOTE | 2018-01-28 11:15 | PROVIDER PROGRESS NOTE ---
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 DOS S/P repair of above lacs. in OR by me under spinal ANS, with transfusion 1 unit PRBC in OR S: Patient resting comfortably, has been taking percocet for pain O: VSS/AF CV RRR LCTAB ABD SNT, Ux firm U-6 : normal lochia, external vulvar exam with mild-mod labial swelling, external exam shows repair intact, urine clear Bakri balloon with approx 20 ml blood tinged fluid MS/NM: SCDs in place See labs. A/P: Doing well, stable. Will begin process of deflating Bakri balloon in a few hours. Discussed with CNM (300 mL placed in balloon) OR given heads up about removing balloon this afternoon and is aware Once Bakri removed safely and patient stable, will d/c multani and begin ambulation, start NSAIDs prn pain (currently getting percocet for pain only) Check CBC tomorrow Objective - Vital Signs/Intake & Output Vital Signs: Vital Signs x48h Temp Pulse Resp BP Pulse Ox 01/28/18 08:08 37.1 C 88 18 107/63 97 01/28/18 06:39 37.4 C 92 16 113/52 L 97 01/28/18 05:30 95 111/62 01/28/18 05:00 87 114/59 L 01/28/18 04:45 85 119/67 01/28/18 04:28 100 121/72 01/28/18 04:15 87 127/77 01/28/18 03:58 99 117/67 98 01/28/18 03:44 85 125/72 100 01/28/18 03:37 94 16 121/70 97 01/28/18 03:30 87 126/71 98 01/28/18 03:28 95 124/69 96 01/28/18 03:20 37.4 C 96 126/67 97 Intake & Output: Intake & Output 01/25/18 01/26/18 01/27/18 01/28/18 23:59 23:59 23:59 23:59 Intake Total 850 1500 Output Total 326 Balance 850 1174 - Lab Results Fish Bones: 01/28/18 03:37 Other Labs: Lab Results x24hrs 01/28/18 01/28/18 01/28/18 Range/Units 08:00 04:00 03:37 WBC 21.0 H (4.8-10.8) x10^3/uL RBC 3.82 L (4.20-5.40) 10^6/uL Hgb 10.7 L (12.0-16.0) g/dL Hct 33.1 L (37.0-47.0) % MCV 86.6 (81.0-99.0) fL MCH 28.1 (27.0-31.0) pg MCHC 32.5 (32.0-36.0) g/dL RDW 13.9 (12.0-15.0) % Plt Count 210 (130-450) 10^3/uL MPV 8.1 (7.9-10.8) fL Neut # (Auto) 18.0 H (1.5-6.6) 10^3/uL Lymph # (Auto) 1.3 L (1.5-3.5) 10^3/uL Potter # (Auto) 1.7 H (0.0-1.0) 10^3/uL Eos # (Auto) 0.0 (0.0-0.7) 10^3/uL Baso # (Auto) 0.0 (0.0-0.1) 10^3/uL Absolute Nucleated RBC 0.00 x10^3/uL Nucleated RBC % 0.0 /100WBC PT 11.8 (9.9-12.6) secs INR 1.0 (0.8-1.2) APTT 26.2 25.1 (24.9-33.3) secs Fibrinogen 416 446 (220-496) mg/dL Blood Type Antibody Screen Crossmatch IS Only 01/27/18 01/27/18 01/26/18 Range/Units 22:40 08:30 08:30 WBC 18.6 H (4.8-10.8) x10^3/uL RBC 4.53 (4.20-5.40) 10^6/uL Hgb 12.5 (12.0-16.0) g/dL Hct 38.7 (37.0-47.0) % MCV 85.3 (81.0-99.0) fL MCH 27.5 (27.0-31.0) pg MCHC 32.3 (32.0-36.0) g/dL RDW 13.9 (12.0-15.0) % Plt Count 210 (130-450) 10^3/uL MPV 7.8 L (7.9-10.8) fL Neut # (Auto) (1.5-6.6) 10^3/uL Lymph # (Auto) (1.5-3.5) 10^3/uL Potter # (Auto) (0.0-1.0) 10^3/uL Eos # (Auto) (0.0-0.7) 10^3/uL Baso # (Auto) (0.0-0.1) 10^3/uL Absolute Nucleated RBC x10^3/uL Nucleated RBC % /100WBC PT (9.9-12.6) secs INR (0.8-1.2) APTT (24.9-33.3) secs Fibrinogen (220-496) mg/dL Blood Type A POSITIVE Antibody Screen NEGATIVE Crossmatch IS Only See Detail See Detail
[2018-01-28] MEDS: LACTATED RINGERS 1,000 ML IV SCH ×2 (12:28→21:56)
[2018-01-28] MEDS ORDERED: fentaNYL 100 MCG/2 ML VIAL IVP PRN (13:09)
[2018-01-28] MEDS ORDERED: fentaNYL 100 MCG/2 ML VIAL ONE (13:22)
--- NOTE | 2018-01-28 13:24 | PROVIDER PROGRESS NOTE ---
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 No significant bleeding coming from balloon. Ux firm U-6. Will deflate balloon completely and remove in approx. 1 hr so long as patient stable. Increase oral oxydodone dose to 7.5 MG at patient request for better pain control. Objective - Vital Signs/Intake & Output Vital Signs: Vital Signs x48h Temp Pulse Resp BP Pulse Ox 01/28/18 08:08 37.1 C 88 18 107/63 97 01/28/18 06:39 37.4 C 92 16 113/52 L 97 01/28/18 05:30 95 111/62 Intake & Output: Intake & Output 01/25/18 01/26/18 01/27/18 01/28/18 23:59 23:59 23:59 23:59 Intake Total 850 1500 Output Total 326 Balance 850 1174 - Lab Results Fish Bones: 01/28/18 03:37 Other Labs: Lab Results x24hrs 01/28/18 01/28/18 01/28/18 Range/Units 08:00 04:00 03:37 WBC 21.0 H (4.8-10.8) x10^3/uL RBC 3.82 L (4.20-5.40) 10^6/uL Hgb 10.7 L (12.0-16.0) g/dL Hct 33.1 L (37.0-47.0) % MCV 86.6 (81.0-99.0) fL MCH 28.1 (27.0-31.0) pg MCHC 32.5 (32.0-36.0) g/dL RDW 13.9 (12.0-15.0) % Plt Count 210 (130-450) 10^3/uL MPV 8.1 (7.9-10.8) fL Neut # (Auto) 18.0 H (1.5-6.6) 10^3/uL Lymph # (Auto) 1.3 L (1.5-3.5) 10^3/uL Crook # (Auto) 1.7 H (0.0-1.0) 10^3/uL Eos # (Auto) 0.0 (0.0-0.7) 10^3/uL Baso # (Auto) 0.0 (0.0-0.1) 10^3/uL Absolute Nucleated RBC 0.00 x10^3/uL Nucleated RBC % 0.0 /100WBC PT 11.8 (9.9-12.6) secs INR 1.0 (0.8-1.2) APTT 26.2 25.1 (24.9-33.3) secs Fibrinogen 416 446 (220-496) mg/dL Blood Type Antibody Screen Crossmatch IS Only 01/27/18 01/27/18 01/26/18 Range/Units 22:40 08:30 08:30 WBC 18.6 H (4.8-10.8) x10^3/uL RBC 4.53 (4.20-5.40) 10^6/uL Hgb 12.5 (12.0-16.0) g/dL Hct 38.7 (37.0-47.0) % MCV 85.3 (81.0-99.0) fL MCH 27.5 (27.0-31.0) pg MCHC 32.3 (32.0-36.0) g/dL RDW 13.9 (12.0-15.0) % Plt Count 210 (130-450) 10^3/uL MPV 7.8 L (7.9-10.8) fL Neut # (Auto) (1.5-6.6) 10^3/uL Lymph # (Auto) (1.5-3.5) 10^3/uL Crook # (Auto) (0.0-1.0) 10^3/uL Eos # (Auto) (0.0-0.7) 10^3/uL Baso # (Auto) (0.0-0.1) 10^3/uL Absolute Nucleated RBC x10^3/uL Nucleated RBC % /100WBC PT (9.9-12.6) secs INR (0.8-1.2) APTT (24.9-33.3) secs Fibrinogen (220-496) mg/dL Blood Type A POSITIVE Antibody Screen NEGATIVE Crossmatch IS Only See Detail See Detail
--- NOTE | 2018-01-28 13:50 | PROVIDER PROGRESS NOTE ---
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 275 mL further were removed by me, comletely deflating and subsequently removing Bakri balloon without difficulty. Patient tolerated well. Ux efra U-8-10. Will observe for a period of time before d/c IV pitocin, resuming regular diet and oral motrin. Objective - Vital Signs/Intake & Output Vital Signs: Vital Signs x48h Temp Pulse Resp BP Pulse Ox 01/28/18 13:30 36.8 C 84 16 104/69 99 01/28/18 08:08 37.1 C 88 18 107/63 97 01/28/18 06:39 37.4 C 92 16 113/52 L 97 Intake & Output: Intake & Output 01/25/18 01/26/18 01/27/18 01/28/18 23:59 23:59 23:59 23:59 Intake Total 850 1500 Output Total 676 Balance 850 824 - Lab Results Fish Bones: 01/28/18 03:37 Other Labs: Lab Results x24hrs 01/28/18 01/28/18 01/28/18 Range/Units 08:00 04:00 03:37 WBC 21.0 H (4.8-10.8) x10^3/uL RBC 3.82 L (4.20-5.40) 10^6/uL Hgb 10.7 L (12.0-16.0) g/dL Hct 33.1 L (37.0-47.0) % MCV 86.6 (81.0-99.0) fL MCH 28.1 (27.0-31.0) pg MCHC 32.5 (32.0-36.0) g/dL RDW 13.9 (12.0-15.0) % Plt Count 210 (130-450) 10^3/uL MPV 8.1 (7.9-10.8) fL Neut # (Auto) 18.0 H (1.5-6.6) 10^3/uL Lymph # (Auto) 1.3 L (1.5-3.5) 10^3/uL Rabun # (Auto) 1.7 H (0.0-1.0) 10^3/uL Eos # (Auto) 0.0 (0.0-0.7) 10^3/uL Baso # (Auto) 0.0 (0.0-0.1) 10^3/uL Absolute Nucleated RBC 0.00 x10^3/uL Nucleated RBC % 0.0 /100WBC PT 11.8 (9.9-12.6) secs INR 1.0 (0.8-1.2) APTT 26.2 25.1 (24.9-33.3) secs Fibrinogen 416 446 (220-496) mg/dL Blood Type Antibody Screen Crossmatch IS Only 01/27/18 01/27/18 01/26/18 Range/Units 22:40 08:30 08:30 WBC 18.6 H (4.8-10.8) x10^3/uL RBC 4.53 (4.20-5.40) 10^6/uL Hgb 12.5 (12.0-16.0) g/dL Hct 38.7 (37.0-47.0) % MCV 85.3 (81.0-99.0) fL MCH 27.5 (27.0-31.0) pg MCHC 32.3 (32.0-36.0) g/dL RDW 13.9 (12.0-15.0) % Plt Count 210 (130-450) 10^3/uL MPV 7.8 L (7.9-10.8) fL Neut # (Auto) (1.5-6.6) 10^3/uL Lymph # (Auto) (1.5-3.5) 10^3/uL Rabun # (Auto) (0.0-1.0) 10^3/uL Eos # (Auto) (0.0-0.7) 10^3/uL Baso # (Auto) (0.0-0.1) 10^3/uL Absolute Nucleated RBC x10^3/uL Nucleated RBC % /100WBC PT (9.9-12.6) secs INR (0.8-1.2) APTT (24.9-33.3) secs Fibrinogen (220-496) mg/dL Blood Type A POSITIVE Antibody Screen NEGATIVE Crossmatch IS Only See Detail See Detail
[2018-01-28] MEDS ORDERED: MAGNESIUM HYDROXIDE 2,400 MG/30 ML UDC PO PRN (13:52)
[2018-01-28] MEDS: SIMETHICONE CHEW 80 MG TABLET PO SCH ×2 (14:19→20:31)
[2018-01-28] MEDS: IBUPROFEN 800 MG TABLET PO PRN ×2 (14:20→21:56)
--- NOTE | 2018-01-28 16:25 | OPERATIVE REPORT ---
DATE OF SERVICE: 01/28/2018 Physician: Dino Woodard DO PREOPERATIVE DIAGNOSES 1. hemorrhage. 2. Bilateral vaginal sidewall lacerations. POSTOPERATIVE DIAGNOSES 1. hemorrhage. 2. Bilateral vaginal sidewall lacerations. 3. Third-degree perineal laceration. PROCEDURES PERFORMED 1. Examination under anesthesia. 2. Repair of bilateral vaginal sidewall lacerations. 3. Repair of third-degree perineal laceration. ANESTHESIA: Spinal. DEPOT MANAGER: Lionel Charlton MD SURGEON: Dino Woodard DO DRAINS: Intraoperative and postoperative drains are a Morin catheter and a Bakri balloon. The Bakri balloon was inserted into the patient's uterus prior to beginning the operation, as well as the Morin catheter. INTRAOPERATIVE FINDINGS: The patient had bilateral 4-inch vaginal sulcus/sidewall lacerations extending to the external labia majora bilaterally. She had a third-degree perineal laceration that was appreciated in the operating room at the time of exam under anesthesia. She also had intact rectal mucosa upon rectovaginal examination intraoperatively. INTRAOPERATIVE FLUIDS: Lactated Ringer's 1000 mL. URINE OUTPUT: 150 mL. ESTIMATED BLOOD LOSS: 250 mL. Of note, the patient was transfused 1 unit of packed red blood cells intraoperatively. ANTIBIOTICS: Perioperative antibiotics were Unasyn 3 grams at 0130 hours. SPECIMEN SUBMITTED: None. COMPLICATIONS: None. CONDITION: Stable. DESCRIPTION OF PROCEDURE: The patient was counseled and consented prior to surgery. She was taken to the operating room where she was anesthetized with spinal anesthesia without complication. She was prepped and draped in routine fashion. A timeout according to hospital policy was performed. The patient was placed in low lithotomy stirrups, prepped and draped in routine fashion. A Kerlix sponge that was in the vagina preoperatively was removed. A narrow [place] was placed in the anterior vagina, and the bilateral sidewall lacerations were noted and repaired separately with running locking 3-0 Vicryl up until near the introitus. The third-degree perineal laceration was identified and repaired using 3 box stitches of 2-0 Vicryl with good reapproximation. Upon palpation, the perineal body was reapproximated separately and in layers using running 3-0 Vicryl with good reapproximation. Of note, the patient had bilateral labial majora lacerations that were an extension of the bilateral vaginal sidewall lacerations. These were 2 inches in length bilaterally and repaired with running 4-0 chromic, again with good hemostasis. The vagina was irrigated, suctioned, noted to be dry, and no active bleeding was noted. There were no sponges in the vagina at the end of the surgery, and all sponge, needle, and instrument counts at the end of the case were also correct. The patient was transferred to recovery in good condition. TD: 01/28/2018 04:37
[2018-01-28] MEDS: oxyCOD/ACETAMIN 5 MG/325 MG TABLET PO PRN ×2 (18:31→21:56)
[2018-01-29] MEDS: oxyCOD/ACETAMIN 5 MG/325 MG TABLET PO PRN ×4 (03:38→20:29)
[2018-01-29] MEDS: LACTATED RINGERS 1,000 ML IV SCH ×3 (05:10→23:49)
[2018-01-29] MEDS: IBUPROFEN 800 MG TABLET PO PRN ×3 (06:22→22:00)
[2018-01-29 06:49] LABS: BASOPHILS # (AUTO) 0.1 10^3/uL (0.0-0.1); BASOPHILS % (AUTO) 0.6 %; EOSINOPHILS # (AUTO) 0.2 10^3/uL (0.0-0.7); EOSINOPHILS % (AUTO) 2.2 %; LYMPHOCYTES # (AUTO) 2.7 10^3/uL (1.5-3.5); LYMPHOCYTES % (AUTO) 24.9 %; MEAN CORPUSCULAR HEMOGLOBIN 28.1 pg (27.0-31.0); MEAN CORPUSCULAR HGB CONC 32.5 g/dL (32.0-36.0); MEAN CORPUSCULAR VOLUME 86.5 fL (81.0-99.0); MEAN PLATELET VOLUME 8.1 fL (7.9-10.8); MONOCYTES % (AUTO) 9.7 %; NEUTROPHILS # (AUTO) 6.7 10^3/uL (1.5-6.6); NEUTROPHILS % (AUTO) 62.6 %; PLT - PLATELET COUNT 166 10^3/uL (130-450); RED BLOOD COUNT 2.41 10^6/uL (4.20-5.40); WHITE BLOOD COUNT 10.7 x10^3/uL (4.8-10.8)
[2018-01-29 07:07] LABS: HGB - HEMOGLOBIN 6.8 g/dL (12.0-16.0)
--- NOTE | 2018-01-29 08:47 | PROVIDER PROGRESS NOTE ---
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 S: Patient doing well, feels really good after IV and Bakri and multani discontinued yesterday. Ambulating, had some diarrhea after a dose of hemabate yesterday, denies heavy bleeding, tolerating diet. No severe abdominal or vaginal pain. No orthostatic sx. O: VSS/AF Labs: see today's CBC, now equilibrated, ABD: SNT, Ux firm and small, hardly palpable : normal lochia MS/NM: no calf pain A/P: PPD #2, POD #1 Doing well overall Anemia, non-orthostatic, doing well, will be taking PNV with Fe since breast feeding Continue present care. Possible d/c home tomorrow. Objective - Vital Signs/Intake & Output Vital Signs: Vital Signs x48h Temp Pulse Resp BP Pulse Ox 01/29/18 04:08 37.1 C 82 20 109/51 L 96 Intake & Output: Intake & Output 01/26/18 01/27/18 01/28/18 01/29/18 23:59 23:59 23:59 23:59 Intake Total 850 3300 904.167 Output Total 2426 800 Balance 850 874 104.167 - Lab Results Fish Bones: 01/29/18 05:36 Other Labs: Lab Results x24hrs 01/29/18 01/27/18 01/26/18 Range/Units 05:36 08:30 08:30 WBC 10.7 (4.8-10.8) x10^3/uL RBC 2.41 L (4.20-5.40) 10^6/uL Hgb 6.8 L* (12.0-16.0) g/dL Hct 20.9 L (37.0-47.0) % MCV 86.5 (81.0-99.0) fL MCH 28.1 (27.0-31.0) pg MCHC 32.5 (32.0-36.0) g/dL RDW 14.0 (12.0-15.0) % Plt Count 166 (130-450) 10^3/uL MPV 8.1 (7.9-10.8) fL Neut # (Auto) 6.7 H (1.5-6.6) 10^3/uL Lymph # (Auto) 2.7 (1.5-3.5) 10^3/uL [place] # (Auto) 1.0 (0.0-1.0) 10^3/uL Eos # (Auto) 0.2 (0.0-0.7) 10^3/uL Baso # (Auto) 0.1 (0.0-0.1) 10^3/uL Absolute Nucleated RBC 0.01 x10^3/uL Nucleated RBC % 0.1 /100WBC Blood Type A POSITIVE Antibody Screen NEGATIVE Crossmatch IS Only See Detail See Detail
[2018-01-29] MEDS: SIMETHICONE CHEW 80 MG TABLET PO SCH ×2 (10:00→21:53)
[2018-01-29] MEDS: DOCUSATE SODIUM 100 MG CAPSULE PO SCH ×2 (10:01→20:29)
--- NOTE | 2018-01-29 13:08 | PROVIDER PROGRESS NOTE ---
Subjective - Prog Note Date Prog Note Date: 01/29/18 Prog Note Time: 13:00 - Subjective Pt reports feeling: Improved Subjective: Nilda reports that she is feeling better today than she was yesterday. She remains fatigued but is not dizzy. She is ambulating w/o difficulty. She reports that her vagina is very painful but that her discomfort is improved w/ the use of oxycodone. She has had some diarrhea today but has not had any difficulty w/ continence. She is having minimal lochia rubra s/p Bakri balloon removal. She is w/ some challenge w/ latch. She is not planning to return to work in the near future & will have adequate support when she is discharged home. Objective - Vital Signs/Intake & Output Reviewed Vital Signs: Yes Vital Signs: Vital Signs x48h Temp Pulse Resp BP Pulse Ox 01/29/18 11:21 36.7 C 88 18 108/50 L 98 01/29/18 08:48 36.9 C 86 16 102/45 L 96 Intake & Output: Intake & Output 01/26/18 01/27/18 01/28/18 01/29/18 23:59 23:59 23:59 23:59 Intake Total 850 3300 1404.167 Output Total 2426 1150 Balance 850 874 254.167 - Objective General Appearance: positive: No acute distress, Alert Respiratory: positive: Chest non-tender, No respiratory distress, Breath sounds nml Cardiovascular: positive: Regular rate & rhythm, No murmur, No gallop Abdomen: positive: Non-tender, No distention, Other (FF U-2) Skin: positive: Color nml, No rash, Warm, Dry Extremities: positive: Non-tender, Full ROM, Nml appearance, Pedal edema (+1 b/l ). negative: Calf tenderness, Jeovany's sign/cords Neurologic/Psychiatric: positive: Oriented x3, CN's nml (2-12), Motor nml, Sensation nml, Mood/affect nml Comments/Other: Breasts b/l s, nt; nipples b/l intact & everted, colostrum readily expressible; declines perineal inspection secondary to company in the room - Lab Results Fish Bones: 01/29/18 05:36 Other Labs: Lab Results x24hrs 01/29/18 01/26/18 Range/Units 05:36 08:30 WBC 10.7 (4.8-10.8) x10^3/uL RBC 2.41 L (4.20-5.40) 10^6/uL Hgb 6.8 L* (12.0-16.0) g/dL Hct 20.9 L (37.0-47.0) % MCV 86.5 (81.0-99.0) fL MCH 28.1 (27.0-31.0) pg MCHC 32.5 (32.0-36.0) g/dL RDW 14.0 (12.0-15.0) % Plt Count 166 (130-450) 10^3/uL MPV 8.1 (7.9-10.8) fL Neut # (Auto) 6.7 H (1.5-6.6) 10^3/uL Lymph # (Auto) 2.7 (1.5-3.5) 10^3/uL [place] # (Auto) 1.0 (0.0-1.0) 10^3/uL Eos # (Auto) 0.2 (0.0-0.7) 10^3/uL Baso # (Auto) 0.1 (0.0-0.1) 10^3/uL Absolute Nucleated RBC 0.01 x10^3/uL Nucleated RBC % 0.1 /100WBC Crossmatch IS Only See Detail Assessment/Plan - Problem List (1) (normal spontaneous vaginal delivery) Impression: 22 y/o s/p 01/27/2018 w/ immediate PPH w/ hemostasis achieved only w/ uterine tamponade; IOL for mild pre-eclampsia Anemia secondary to acute blood loss, s/p transfusion of 1U PRBC 01/28/2018, hemodynamically stable Normal uterine involution w/ minimal lochia rubra 3rd degree vaginal laceration w/ deep b/l sidewall lacerations, repaired in OR challenges Adequate pain control w/ opioid analgesia P: 1. continue routine pp care 2. reviewed bowel care & management in setting of 3rd degree laceration 3. reviewed implications of her profound anemia & management options; she declines further transfusion @ this time, reviewed implications for & encouraged increased fluid intake, feso4 supplementation 4. support provided & to continue in ongoing fashion 5. Anticipate d/c home PPD#3
[2018-01-30] MEDS: IBUPROFEN 800 MG TABLET PO PRN (06:08)
--- NOTE | 2018-01-30 09:25 | Discharge Plan ---
Discharge Plan Disposition: 01 Home, Self Care Condition: Good Diet: Regular Activity Restrictions: Additional Comments (VAGANAL REST FOR 8 (EIGHT) WEEKS. NO SEX/BATHING/DOUCHING/SWIMMING X 8 WEEKS) Shower Restrictions: No Driving Restrictions: Yes (3 WEEKS) Weight Bearing: Full Weight Additional Instructions or Follow Up instructions: FOLLOW UP AT [facility] 6 WEEKS WITH A PHYSICIAN. CALL FOR APPOINTMENT. No Smoking: If you smoke, Please STOP! Call for help. Follow-up with: Brijesh Naik MD [Provider Admit Priv/Credential] -
--- NOTE | 2018-01-30 09:30 | DISCHARGE SUMMARY ---
"Discharge Summary Admit Date: 01/27/18 Discharge Date: 01/30/18 Discharging Provider: MONY Condition at Discharge: Good Discharge Disposition: 01 Home, Self Care - DIAGNOSES Admission Diagnoses: PREECLAMPSIA WITH MILD FEATURES 37 WEEKS GESTATION Discharge Diagnoses with Status of Each Condition: VAGINAL DELIVERY, STABLE HEMORRHAGE, STABLE BILATERAL VAGINAL SIDEWALL LACERATIONS AND REPAIR, STABLE THIRD DEGREE PERINEAL LACERATION AND REPAIR, STABLE - HPI History of Present Illness: 22 yo 37 weeks EGA with preeclampsia with mild feature since 34 weeks admitted for cervical ripening and subsequent induction of labor. - CONSULTS | PROCEDURES Procedures: spontaneous vaginal delivery hemorrhage bilateral vaginal sidewall lacerations and repair 3rd degree perineal laceration and repair spinal anesthesia transfusion 1 unit PRBC - HOSPITAL COURSE Hospital Course: The patient underwent multani bulb placement for cervical ripening initially, was subsequently given cytotec orally. She delivered on 01/27/18 at 2207 hours a viable 7 lbs 0.9 onz male with 8/9. The delivery, performed by BRYAN , was complicated by hemorrhage, EBL 1,200 mL and what initially appeared to be large BL vaginal sidewall/sulcus laceration that were not amenable to repair in the delivery room due to lack of adequate exposure and visualization. I was consulted by BRYAN to assist with repair of lacerations in OR. The patient underwent a Bakri balloon in the delivery room by BRYAN prior to going to OR. The patient was taken to the OR, given Spinal anesthesia and underwent Exam Under Anesthesia and repair of the Bilateral vaginal lacerations previously described (see OP Report for more details). A third degree perineal laceration was noted in the OR at the time of EUA and was repaired as well. Retovaginal exam intra-operatively confirmed the recto-vaginal mucosa to be intact. The patient was transfused 1 unit PRBCs in the OR. Postoperatively, the patient did very well. The Bakri balloon was removed without incident approximately 14 hours after insertion. Her hematocrit immediately post-op was 32%, on POD #1(01/29/18) her hematocrit had equilibrated to just under 21% with no orthostatic symptoms. Moderate vulvar swelling aroung the time of delivery had essentially resolved at time of discharge and her repair appeared intact exteranally at that time. The patient is discharged home on PPD #3 and POD #2. I have had an extensive conversation with the patient regarding the implications of her lacerations on future deliveries and beyond. Given the fact that the patient had large bilateral sidewall/sulcus tears that had detached her vaginal floor from the perineal body as well as a 3rd degree perineal laceration, I have recommended the patient strongly consider having a Section with future pregnancies , due to my concerns that a future similar laceration at time of vaginal could result in vaginal scarring/pain/dyspareunia/ fecal and flatus incontinence / as well as possible recto-vaginal fistula that may not be amenable to repair. I also encouraged her to have a discussion with her future OB provider about this topic early in the if she were to become again. She voiced understanding of the above recommendations and all questions were answered to her satisfaction. Furthermore, I have counseled both the patient and her partner to avoid coitus for 8 weeks to allow sufficient time for her to heal. - ALLERGIES Allergies/Adverse Reactions: Allergies Allergy/AdvReac Type Severity Reaction Status Date / Time Sulfa (Sulfonamide Allergy Anaphylaxis Verified 10/21/17 11:01 Antibiotics) - MEDICATIONS Home Medications: Ambulatory Orders Medication Instructions Recorded Confirmed Knee Scooter 1 unit TD ONCE #1 11/09/17 Pnv95/Ferrous Fumarate/FA 1 tab PO DAILY 11/09/17 11/09/17 [ Formula Tablet] Home Medications Other | Comments: RX FOR HOME: PERCOCET 5/325 #35: 1 P.O. Q4H PRN POST-OP PAIN MOTRIN 800 MG #90: 1 P.O. Q8H PRN PAIN, 1 RF - PHYSICAL EXAM AT DISCHARGE General Appearance: positive: No acute distress, Alert Eyes Bilateral: positive: Normal inspection ENT: positive: ENT inspection nml Neck: positive: Nml inspection Abdomen: positive: Non-tender Back: positive: Nml inspection Skin: positive: Color nml, No rash, Warm Extremities: positive: Non-tender, Full ROM, Nml appearance Physical Exam Other/Comments: VAGINAL REPAIR APPEARS INTACT EXTERNALLY WITH SWELLING RESOLVED. UX AT U-6 AND NT - LABS Result Diagrams: 01/29/18 05:36 - FOLLOW UP Follow Up: FOLLOW UP AT [facility] 6 WEEKS - TIME SPENT Time Spent in Discharge (Minutes): 60"
[2018-01-30] MEDS: DOCUSATE SODIUM 100 MG CAPSULE PO SCH (09:59)
[2018-01-30] MEDS: SIMETHICONE CHEW 80 MG TABLET PO SCH (09:59)
[2018-01-30] MEDS: oxyCOD/ACETAMIN 5 MG/325 MG TABLET PO PRN (09:59)
[2018-01-30] MEDS ORDERED: MEASLES,MUMPS & RUBELLA VACC 0.5 ML VIAL SUBQ ONE (11:16)
[2018-01-30] MEDS ORDERED: LACTATED RINGERS 1,000 ML IV ONE (12:59)
[2018-01-30 14:16] LABS: BASOPHILS % (AUTO) 0.5 %; EOSINOPHILS # (AUTO) 0.2 10^3/uL (0.0-0.7); EOSINOPHILS % (AUTO) 3.4 %; HGB - HEMOGLOBIN 7.5 g/dL (12.0-16.0); LYMPHOCYTES # (AUTO) 1.4 10^3/uL (1.5-3.5); LYMPHOCYTES % (AUTO) 19.3 %; MEAN CORPUSCULAR HEMOGLOBIN 28.5 pg (27.0-31.0); MEAN CORPUSCULAR HGB CONC 32.8 g/dL (32.0-36.0); MEAN CORPUSCULAR VOLUME 86.8 fL (81.0-99.0); MEAN PLATELET VOLUME 7.7 fL (7.9-10.8); MONOCYTES # (AUTO) 0.5 10^3/uL (0.0-1.0); MONOCYTES % (AUTO) 6.6 %; NEUTROPHILS # (AUTO) 5.2 10^3/uL (1.5-6.6); NEUTROPHILS % (AUTO) 70.2 %; PLT - PLATELET COUNT 210 10^3/uL (130-450); RED BLOOD COUNT 2.62 10^6/uL (4.20-5.40); WHITE BLOOD COUNT 7.4 x10^3/uL (4.8-10.8)
[2018-01-30] MEDS ORDERED: FERRIC GLUCONATE 125 MG in SODIUM CHLORIDE 0.9% 100ML 100 ML IV ONE (15:30)
[2018-01-30 18:17] VITALS: BP 128/77
--- NOTE | 2018-01-30 18:22 | Labor Flowsheet ---
Labor Flowsheet Datetime Report Generated by CPN: 01/30/2018 18:22 Datetime: 01/28/2018 00:05 Pulse: 99 SpO2 (%): 100 LaborFlag: Labor Datetime: 01/28/2018 00:01 VITAL SIGNS NBP Sys/Cheryl/Mean (mmHg): 123 : 52 : 70 Datetime: 01/27/2018 22:07 UTERINE ACTIVITY Monitor Mode: External Frequency (min): 2.5-3 Quality: Strong Duration (sec): 60-80 Pattern: Normal: <= 5 Contractions in 10 Minutes Resting Tone (Palpate): Relaxed ASSESSMENT A Monitor Mode: External US Variability: Moderate 6-25 bpm Accelerations: 15X15 Decelerations: Variable Actions for Decelerations: Oxygen Applied; IV Bolus Category: Category II Oxygen Amount (LPM): 10 Oxygen Method: Face Mask Datetime: 01/27/2018 22:00 FHR Baseline Rate : 125 TEACHING Instructional Method: Verbal Labor/Induction: Pushing Methods COMMUNICATION Communication: Provider at Bedside Provider Notified (Name): Morghan Milagrosa Datetime: 01/27/2018 21:56 PATIENT CARE IV/Blood Work: IV Bolus Started Datetime: 01/27/2018 21:52 Temperature (C): 36.7 Datetime: 01/27/2018 21:45 Comments: possible indeterminate decel x 1 Datetime: 01/27/2018 21:40 Communication Comments: VE 10/100/+2, pt feeling pushy, pt ruptured, provider to report to bedside Datetime: 01/27/2018 21:38 VAGINAL EXAM Dilatation (cm): 10.0 Effacement (%): 100 Station: 2 Exam by: Samuel, RN Datetime: 01/27/2018 21:37 Patient Position/Activity: Left Tilt; Semi-Fowlers Datetime: 01/27/2018 21:35 STAGE 2 Pushing: Involuntary Pushing Pushing Position: Pushing Lithotomy Pushing Progress: Descent with Pushing Datetime: 01/27/2018 21:30 PAIN Pain Scale: 10 Pain Presence: Intermittent Pain Type: Contraction Pain Location: Abdomen Pain Relief Measures: Comfort Measures Pain Coping: Declines Medication or Epidural Datetime: 01/27/2018 21:20 Plan of Care: Plan of Care Discussed; Labor Pain Management: Pain Scale/Goals; Comfort Measures Datetime: 01/27/2018 21:08 Patient Care Comments: pt back in jacuzzi Datetime: 01/27/2018 21:05 Vaginal Exam Comments: pt feeling pushy Datetime: 01/27/2018 21:01 Monitor Interventions for FHR: Ultrasound Adjusted I/O Interventions: Up to BR Datetime: 01/27/2018 20:49 Membrane Status: Ruptured Membranes Rupture Method: Spontaneous Amniotic Fluid Amount: Small Nitrazine: Positive Datetime: 01/27/2018 19:59 DTR's/Clonus: DTRs 2+; No Clonus Headache: Denies Nausea/Vomiting: Denies RUQ Epigastric Pain: Denies Datetime: 01/27/2018 19:30 Unit Routine: Morris to Room; Call Evans; Unit Personnel Datetime: 01/27/2018 19:24 MATERNAL ASSESSMENT Level of Consciousness: Fully Conscious Breath Sounds, Left: Clear and Equal Breath Sounds, Right: Clear and Equal Datetime: 01/27/2018 19:19 Respirations: 12 Datetime: 01/27/2018 18:30 Related: Activity and Rest Teaching Comments: Reviewed transition, pushing, skin to skin with nursing or hand expression, gett ing rest, and baby blue. Reviewed Nilda's and Westford's preferences. Questions answered at t his time. Datetime: 01/27/2018 17:30 Pain Assessment Comments: Remains on birthing ball and coping well with contractions Comfort Measures: Breathing/Relaxation Datetime: 01/27/2018 17:01 Stage of : Labor Pain Goal: 10 Vaginal Bleeding: Normal Show Cervix, Consistency: Soft Cervix, Position: Midposition Datetime: 01/27/2018 15:30 Contraction Comments: Per patient, contractions not tracing while she is on her side Datetime: 01/27/2018 10:45 Monitor Interventions for UA: Amesti Adjusted Datetime: 01/27/2018 08:54 Cervical Ripening Agents: Cytotec @ 50 Medication Comments: buccal Datetime: 01/27/2018 08:45 Notification Reason: Status; Uterine Activity Datetime: 01/27/2018 00:01 Hygiene: Rain Care Datetime: 01/26/2018 23:57 MEDICATIONS Analgesics/Sedatives: Tylenol (mg) @; Ambien (mg) @ (Annotations: tylenol @ 650mg Ambien @ 10mg) Datetime: 01/26/2018 21:56 Temperature Route: Oral Datetime: 01/26/2018 08:45 Medications: Cervical Ripening
== END 2018-01-30 18:20 | disposition home or self-care (01) | DRG 768 ==
LOC: WFO 07:58 → FBP 08:00 → WFO 08:02 → FBP 08:03 → OBSVTOIN 01-27 16:59 → ICU 01-28 02:58 → FBP 01-28 03:08
PROVIDERS: ADMIT Nurse Practitioner Obstetrics & Gynecology; ATTEND Obstetrics & Gynecology
PROC: 0U7C7ZZ Dilation of Cervix, Via Natural or Artificial Opening (ICD-10-PCS; 2018-01-26)
PROC: 10E0XZZ Delivery of Products of Conception, External Approach (ICD-10-PCS; principal; 2018-01-27)
PROC: 0W3R7ZZ Control Bleeding in Genitourinary Tract, Via Natural or Artificial Opening (ICD-10-PCS; 2018-01-27)
PROC: 30233N1 Transfusion of Nonautologous Red Blood Cells into Peripheral Vein, Percutaneous Approach (ICD-10-PCS; 2018-01-27)
PROC: 0DQR0ZZ Repair Anal Sphincter, Open Approach (ICD-10-PCS; 2018-01-28)
DX: O14.04 Mild to moderate pre-eclampsia, complicating childbirth (principal); D62 Acute posthemorrhagic anemia; O72.1 Other immediate postpartum hemorrhage; O70.20 Third degree perineal laceration during delivery, unspecified; O90.81 Anemia of the puerperium; O69.81X0 Labor and delivery complicated by cord around neck, without compression, not applicable or unspecified; O69.89X0 Labor and delivery complicated by other cord complications, not applicable or unspecified; Z37.0 Single live birth; Z3A.37 37 weeks gestation of pregnancy; Z87.81 Personal history of (healed) traumatic fracture
CPT/HCPCS: 36415; 59200; 82570; 83615; 84156; 84450; 84550; 85014; 85018; 85025; 85027; 85384; 85610; 85730; 86850; 86900; 86901; 86920

== ENCOUNTER 2018-03-31 06:13 | Emergency (ER) | payer OTHER ==
[2018-03-31 06:19] VITALS: BP 119/70
--- NOTE | 2018-03-31 06:28 | ED Physician Documentation ---
PD HPI OPHTHO - Stated complaint Stated Complaint: SWOLLEN EYE - Chief complaint Chief Complaint: Heent - History obtained from History obtained from: Patient - History of Present Illness Timing - onset: Yesterday Timing - details: Gradual onset, Still present Location: Left Associated symptoms: Redness, Swelling, Discharge, Matting Contributing factors: No: Wears glasses, Wears contacts Similar symptoms before: Has not had sx before Recently seen: Not recently seen - Additional information Additional information: Patient is a 23 year old female with no significant past medical history who is presenting to the emergency department for swelling, redness and matting of her left eye. Patient states that she woke up this morning with these symptoms. Patient denies any trauma or sick contacts. 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 HEENT: Dental implants Psych: None Musculoskeletal: None Derm: None - Past Surgical History Past Surgical History: No - Present Medications Home Medications: Ambulatory Orders Medication Instructions Recorded Confirmed Knee Scooter 1 unit TD ONCE #1 11/09/17 Pnv95/Ferrous Fumarate/FA 1 tab PO DAILY 11/09/17 11/09/17 [ Formula Tablet] Polymyxin B Sulf/Trimethoprim 1 drop LEFTEYE Q3H 7 Days drops 03/31/18 [Polytrim Eye Drops] - Allergies Allergies/Adverse Reactions: Allergies Allergy/AdvReac Type Severity Reaction Status Date / Time Sulfa (Sulfonamide Allergy Anaphylaxis Verified 03/31/18 06:19 Antibiotics) - Social History Does the pt smoke?: No Smoking Status: Never smoker Does the pt drink ETOH?: No Does the pt have substance abuse?: No - Immunizations Immunizations are current?: Yes - POLST Patient has POLST: No PD ED PE NORMAL - Vitals Vital signs reviewed: Yes - General General: Alert and oriented X 3, No acute distress - HEENT HEENT: Atraumatic - Cardiac Cardiac: RRR - Respiratory Respiratory: No respiratory distress - Derm Derm: Normal color, Warm and dry - Extremities Extremities: No deformity - Neuro Neuro: Alert and oriented X 3 PD ED PE EXPANDED - Eyes Eyes: Left eye, Eyelid swelling, Injected conj/sclera, Exudate Results - Vitals Vitals: Vital Signs - 24 hr 03/31/18 06:16 Temperature 36.4 C L Heart Rate 71 Respiratory 17 Rate Blood Pressure 119/70 O2 Saturation 99 Oxygen O2 Source Room air PD MEDICAL DECISION MAKING - ED course Complexity details: reviewed old records, considered differential, d/w patient ED course: Patient was seen and examined at bedside. patient was stable and findings were consistent with conjunctivitis. Prescriptions were written and patient was stable for discharge with outpatient follow up. - Sepsis Event Vital Signs: Vital Signs - 24 hr 03/31/18 06:16 Temperature 36.4 C L Heart Rate 71 Respiratory 17 Rate Blood Pressure 119/70 O2 Saturation 99 Oxygen O2 Source Room air Departure - Departure Disposition: Home, Self Care Clinical Impression: Conjunctivitis Condition: Good Instructions: Conjunctivitis Follow-Up: primary,care provider [Other] - Within 3 Days Prescriptions: Polymyxin B Sulf/Trimethoprim [Polytrim Eye Drops] 1 drop LEFTEYE Q3H 7 Days drops Comments: Your symptoms today are being caused by conjunctivitis. You are being prescribed antibiotics that you will need to place 6-8 times a day. You are highly contagious and will need to limit your contact with your young child. If you are going to interact with him/her it is imperative that you wash your hands before doing so. If your symptoms don't improve in the next few days you should follow up with your doctor for further evaluation and care. Discharge Date/Time: 03/31/18 06:41
== END 2018-03-31 06:41 | disposition home or self-care (01) ==
LOC: ED 06:13
DX: H10.9 Unspecified conjunctivitis (principal)
CPT/HCPCS: 99283